=== PATIENT | male | born 1935 | race Caucasian/White ===

== ENCOUNTER 2017-12-11 14:07 | Outpatient (RCR) | payer MEDICARE, OTHER, SELFPAY | END 2018-03-18 14:17 | LOC: SP 14:07 | PROVIDERS: Family Provider Family Medicine; PCP Family Medicine; Visit Provider Family Medicine | DX: R13.10 Dysphagia, unspecified (principal) | CPT/HCPCS: 92526; 92610 ==

== ENCOUNTER 2018-05-03 09:38 | Emergency (ER) | payer MEDICARE, OTHER, SELFPAY ==
[2018-05-03 09:50] VITALS: BP 127/108; PULSE 69; RESP 16; TEMP 36.5; O2SAT 100; BMI 32.5
--- NOTE | 2018-05-03 09:54 | PC.NURSE ---
uses cbd drops occasionally.
--- NOTE | 2018-05-03 10:35 | ED_ITS ---
HPI - Back Pain/Injury General Chief Complaint: Back Pain/Injury Stated Complaint: BACK AND HIP PAIN Time Seen by Provider: 05/03/18 10:08 Source: patient Mode of arrival: ambulatory Limitations: no limitations History of Present Illness HPI Narrative: The patient is a 82-year-old male who presents with back pain. He has a history of a lumbar fusion. Many years ago. He has been having some spasms in increased pain over the last few nights. No urinary incontinence no fever. He has got numbness and tingling down the lateral side of his legs no difficulty walking. He has taken ibuprofen any taken Tylenol along with hydrocodone. He says nothing helped. He is also on Eliquis. Related Data Home Medications Medication Instructions Recorded Confirmed fluticasone [Flovent HFA] 1 spray INH BID #0 09/09/16 05/03/18 metoprolol succinate [Toprol XL] 50 mg PO BID #0 09/09/16 05/03/18 testosterone cypionate [Testone 200 mg IM #0 09/09/16 CIK] apixaban [Eliquis] 2.5 mg PO BID 05/03/18 05/03/18 apixaban [Eliquis] 2.5 mg PO BID 05/03/18 05/03/18 hydrocodone-acetaminophen 5 - 325 mg PO PRN PRN 05/03/18 05/03/18 ibuprofen 600 mg PO PRN PRN 05/03/18 05/03/18 metoprolol succinate 50 mg PO BID 05/03/18 05/03/18 simvastatin 40 mg PO DAILY 05/03/18 05/03/18 Previous Rx's Medication Instructions Recorded furosemide 40 mg PO Q DAY #30 09/09/16 Allergies Allergy/AdvReac Type Severity Reaction Status Date / Time Sulfa (Sulfonamide Allergy Severe THROAT Verified 05/03/18 09:54 Antibiotics) SWELLING Review of Systems Review of Systems GENERAL: Denies chills, fatigue, malaise, fever, sweats, travel HEENT: Denies sinus pain, ear pain, sore throat, difficulty swallowing, neck pain RESPIRATORY: Denies dyspnea, cough, wheezing, hemoptysis, sputum. CARDIOVASCULAR: Denies chest pain, palpitations, orthopnea, edema GASTROINTESTINAL: Denies nausea, vomiting, abdominal pain, diarrhea, constipation, melena. : Denies dysuria, frequency, incontinence, hematuria, urinary retention, flank pain. MUSCULOSKELETAL: See HPI SKIN: No rash, no erythema, no pruritus NEUROLOGIC: Denies weakness, dizziness, headache, numbness, change in speech, confusion PSYCHIATRIC: No concerning psychosocial issues. 12 point review of systems is negative except for those stated above and HPI PFSH Medical History Atrial fibrillation (Acute) Fusion of spine, lumbar region (Acute) Social History Smoking Status: Former smoker Exam Initial Vital Signs Initial Vital Signs: Vital Signs Temperature 97.7 F 05/03/18 09:50 Pulse Rate 69 05/03/18 09:50 Respiratory Rate 16 05/03/18 09:50 Blood Pressure 127/108 H 05/03/18 09:50 Pulse Oximetry 100 05/03/18 09:50 GENERAL: Alert elderly male in no acute distress speaking full sentences HEENT: Head atraumatic,EOMI, pupils reactive, face symmetric CARDIOVASCULAR: Regular rate and rhythm without murmurs, rubs or gallops. RESPIRATORY: Breath sounds equal bilaterally, no wheezes rales or rhonchi. ABDOMEN: Soft, nontender. Normoactive bowel sounds all 4 quadrants. No guarding or rebound. BACK: No vertebral tenderness no step-offs. There is a lumbar fusion scar noted. Sensation in lower extremities in medial thighs intact. Moving toes. EXTREMITIES: Normal range of motion, no clubbing or edema. Neurovascularly intact NEUROLOGICAL: Alert and oriented x4.Normal gait and speech. Cranial nerves II through XII grossly intact. SKIN: Warm, dry, no laceration, no petechiae, no rashes or lesions. Course Orders Ordered: ED Orders 05/03/18 10:42 XR lumbar spine 2-3V Stat Vital Signs - 8 hr 05/03/18 09:50 05/03/18 11:28 05/03/18 11:37 Temperature 97.7 F Pulse Rate 69 60 82 Respiratory Rate 16 14 20 Blood Pressure 127/108 H 123/82 Blood Pressure [Right Arm] 123/82 Pulse Oximetry 100 99 98 MDM - Back Pain/Injury Imaging Data XRAY-L spine: Radiologist's impression: PROCEDURE: XR LUMBAR SPINE 2-3V INDICATIONS: pain, hx of surgery TECHNIQUE: 3 views of the lumbar spine were acquired. COMPARISON: [facility], XR LUMBAR SPINE 2 OR 3 VIEWS, 08/19/2017, 13:34. FINDINGS: Bones: 5 [id number] vertebrae are present. Patient is status post transpedicular fusion at L3-L5 levels with intervertebral spacer placement at L3-4 and L4-5 levels. Grade 1 anterolisthesis of L4 on L5 is again seen, unchanged from prior study. No acute compression fracture or traumatic spondylolisthesis. No gross hardware loosening or failure. Degenerative endplate changes are again noted throughout rest of lumbar spine, unchanged or slightly worsened compared to previous study. No suspicious bony lesions. Soft tissues: Overlying bowel gas pattern is normal. No suspicious soft tissue calcifications. IMPRESSION: Stable lumbar spine alignment. No gross hardware complication. No acute compression fracture or traumatic spondylolisthesis. Degenerative disc disease lumbar spine. Dictated by: Odilon Gonzales M.D. on 05/03/2018 at 11:02 [facility] Narrative Medical decision making narrative: Patient has an appointment with Orthopedics this week. He says his CBD oil actually works best for him. I actually encouraged him to continue this rather than put him on sedating medications such as opiates her muscle relaxer. He is at risk for falling and is on Eliquis. Discharge Plan Departure Patient Disposition: Home Clinical Impression: Acute exacerbation of chronic low back pain Discharge Date/Time: 05/03/18 11:38 Interventions: ED Discharge Assessment Last Done: 05/03/18 11:37 Instructions: DI for Back Pain With Sciatica Activity Restrictions/Additional Instructions: *You have been diagnosed with acute on chronic low back pain *What to do: Increase activity as tolerated, try heating pad *Continue to take medications as directed *Follow up with your primary care provider in 2-3 days, follow up with Orthopedics as previously scheduled *Return to ER if you should have loss of urine, weakness, inability to stand or any new, worsening or concerning symptoms Prescriptions: No Action metoprolol succinate [Toprol XL] 50 MG tablet extended release 24 hr 50 mg PO BID Qty: 0 RF: 0 fluticasone [Flovent HFA] 12 GM HFA aerosol inhaler 1 spray INH BID Qty: 0 RF: 0 testosterone cypionate [Testone CIK] 200 MG/1 ML kit 200 mg IM Qty: 0 RF: 0 furosemide 40 MG tablet 40 mg PO Q DAY Qty: 30 RF: 0 apixaban [Eliquis] 2.5 mg tablet 2.5 mg PO BID RF: 0 ibuprofen 600 mg tablet 600 mg PO PRN PRN (Reason: Pain (Scale Score 1-3)) RF: 0 hydrocodone-acetaminophen 5-325 mg tablet 5 - 325 mg PO PRN PRN (Reason: Pain (Scale Score 1-3)) RF: 0 simvastatin 20 mg tablet 40 mg PO DAILY RF: 0 apixaban [Eliquis] 5 MG tablet 2.5 mg PO BID RF: 0 metoprolol succinate 50 MG tablet extended release 24 hr 50 mg PO BID RF: 0
--- NOTE | 2018-05-03 10:42 | DI.RAD.S_ITS ---
PROCEDURE: XR LUMBAR SPINE 2-3V INDICATIONS: pain, hx of surgery TECHNIQUE: 3 views of the lumbar spine were acquired. COMPARISON: [facility], CR, XR LUMBAR SPINE 2 OR 3 VIEWS, 08/19/2017, 13:34. FINDINGS: Bones: 5 [id number] vertebrae are present. Patient is status post transpedicular fusion at L3-L5 levels with intervertebral spacer placement at L3-4 and L4-5 levels. Grade 1 anterolisthesis of L4 on L5 is again seen, unchanged from prior study. No acute compression fracture or traumatic spondylolisthesis. No gross hardware loosening or failure. Degenerative endplate changes are again noted throughout rest of lumbar spine, unchanged or slightly worsened compared to previous study. No suspicious bony lesions. Soft tissues: Overlying bowel gas pattern is normal. No suspicious soft tissue calcifications. IMPRESSION: Stable lumbar spine alignment. No gross hardware complication. No acute compression fracture or traumatic spondylolisthesis. Degenerative disc disease lumbar spine. Dictated by: Odilon Gonzales M.D. on 05/03/2018 at 11:02 Approved by: Odilon Gonzales M.D. on 05/03/2018 at 11:04
[2018-05-03 11:28] VITALS: BP 123/82; PULSE 60; RESP 14; O2SAT 99
[2018-05-03 11:37] VITALS: BP 123/82; PULSE 82; RESP 20; O2SAT 98
== END 2018-05-03 11:38 | disposition home or self-care (01) ==
PROVIDERS: Emergency Provider Emergency Medicine; Family Provider Family Medicine; PCP Family Medicine
DX: M54.9 Dorsalgia, unspecified (principal); G89.29 Other chronic pain
CPT/HCPCS: 72100; 99282; 99283

== ENCOUNTER → 2018-05-11 11:42 | Outpatient (CLI) | payer MEDICARE, OTHER, SELFPAY ==
--- NOTE | 2018-05-11 | DI.CT.S_ITS ---
PROCEDURE: CT LUMBAR SPINE WO CON INDICATIONS: LUMBAR RADICULOPATHY TECHNIQUE: Noncontrast 3 mm thick sections acquired from the T12 level to the sacrum. Sagittal and coronal reformats were constructed. For radiation dose reduction, the following was used: automated exposure control. COMPARISON: [facility] [place], [place], XR LUMBAR SPINE 2 OR 3 VIEWS, 08/19/2017, 13:34. [facility], CR, XR LUMBAR SPINE 2-3V, 05/03/2018, 10:26. FINDINGS: Image quality: Excellent. Bones: There is grade 1 anterolisthesis of L1 on L2 and L4 on L5. No acute vertebral body compression fractures. No suspicious lytic or blastic bony lesions. Schmorl's nodes are seen in inferior endplates of T11 and T12 and superior endplate of L1. No pars defects. T12-L1: Moderate loss of disc height and vacuum phenomenon. There is diffuse posterior disc bulge. Mild bilateral facet arthropathy. The central canal is mildly narrowed. Mild to moderate bilateral foraminal stenosis. L1-L2: Mild loss of disc height and diffuse posterior disc bulge. Moderate bilateral facet arthropathy. The central canal is moderately narrowed. Mild to moderate bilateral foraminal stenosis. L2-L3: Moderate loss of disc height and diffuse posterior disc bulge. Moderate bilateral bilateral facet arthropathy. The central canal is moderately narrowed. Moderate bilateral foraminal stenosis. L3-L4: Surgically fused with discectomy and laminectomy. Moderate bilateral facet arthropathy. No central canal or foraminal stenosis. L4-L5: Surgically fused with discectomy and laminectomy. Moderate bilateral facet arthropathy. No central canal stenosis. Moderate bilateral foraminal stenoses. L5-S1: Minimal posterior disc bulge with preserved disc height. No central canal or foraminal stenosis. Soft tissues: No retroperitoneal masses or hematomas. Visualized aorta is normal in caliber. IMPRESSION: 1. Multilevel degenerative and postsurgical changes as described. 2. Moderate central canal stenosis at L1-L2 and L2-L3, mild central canal stenosis at T12-L1. 3. Multilevel foraminal stenosis as described. Dictated by: Roya Koch M.D. on 05/11/2018 at 12:59 Transcribed by: [place] on 05/11/2018 at 13:32 Approved by: Roya Koch M.D. on 05/11/2018 at 17:50
== END ==
PROVIDERS: PCP Family Medicine; Visit Provider Orthopaedic Surgery
DX: M51.16 Intervertebral disc disorders with radiculopathy, lumbar region (principal); M51.15 Intervertebral disc disorders with radiculopathy, thoracolumbar region; Z98.1 Arthrodesis status; M47.26 Other spondylosis with radiculopathy, lumbar region; M47.25 Other spondylosis with radiculopathy, thoracolumbar region; M48.05 Spinal stenosis, thoracolumbar region; M48.061 Spinal stenosis, lumbar region without neurogenic claudication
CPT/HCPCS: 72131

== ENCOUNTER → 2018-05-15 10:12 | Outpatient (CLI) | payer MEDICARE, OTHER, SELFPAY ==
[2018-05-15 11:11] LABS: BUN Creatinine Ratio 39.4 (6-22); Blood Urea Nitrogen 71 mg/dL (9-20); Calcium 10.2 mg/dL (8.4-10.2); Carbon Dioxide 25 mmol/L (22-32); Chloride 105 mmol/L (98-107); Estimated Glomerular Filt Rate 36.2 mL/min (>60); Glucose 88 mg/dL (80-110); HEMOLYSIS < 15 (0-50); Sodium 142 mmol/L (137-145)
[2018-05-15 11:14] LABS: Potassium 5.5 mmol/L (3.4-5.1)
== END ==
PROVIDERS: PCP Family Medicine; Visit Provider Internal Medicine Cardiovascular Disease
DX: I48.0 Paroxysmal atrial fibrillation (principal); I48.3 Typical atrial flutter
CPT/HCPCS: 36415; 80048

== ENCOUNTER → 2018-09-01 11:20 | Outpatient (CLI) | payer MEDICARE, OTHER, SELFPAY ==
[2018-09-01 12:35] LABS: BUN Creatinine Ratio 16.7 (6-22); Blood Urea Nitrogen 20 mg/dL (9-20); Calcium 9.5 mg/dL (8.4-10.2); Carbon Dioxide 30 mmol/L (22-32); Chloride 101 mmol/L (98-107); Estimated Glomerular Filt Rate 57.8 mL/min (>60); Glucose 80 mg/dL (80-110); HEMOLYSIS < 15 (0-50); Potassium 4.5 mmol/L (3.4-5.1); Sodium 140 mmol/L (137-145)
== END ==
PROVIDERS: PCP Family Medicine; Visit Provider Nurse Practitioner Family
DX: Z51.81 Encounter for therapeutic drug level monitoring (principal); Z79.899 Other long term (current) drug therapy
CPT/HCPCS: 36415; 80048

== ENCOUNTER 2019-09-13 11:30 | Outpatient (RCR) | payer MEDICARE, OTHER, SELFPAY ==
--- NOTE | 2019-08-23 13:19 | ST.OPIE ---
Visit Care Team Role Provider Type Sendy Guerra PA-C Primary Care Provider Non-Staff Specialty: Nursing Address: [address] [place] [address], [id number] Email: Marco Maynard MD Attending Provider Physician Referring Provider Specialty: Ear, Nose, Throat Address: [address] [place] [address], [id number] Email: [email or web address] Speech-Language Pathology Initial Evaluation MODEL BUILDER Clinical Swallow Evaluation Start: 08/23/19 10:30 Freq: Status: Active Protocol: Document 08/23/19 12:46 LNK (Rec: 08/23/19 13:18 LNK [email or web address]) Clinical Swallow Evaluation Session Time Visit Start Time 10:30 Visit Stop Time 11:25 Total Visit Minutes 55 Visit Information Visit Number 1 Plan of Care Dates 08/23/19-11/21/[address] Marco Maynard, ENT Reason for Referral dysphagia Setting Assessment Location Outpatient Care Visit Type Note Type Initial Evaluation Next Note Type Next Note Type Treatment Note Patient Information Identification Type Name,Picture History Delvin Cali was seen for a clinical swallowing evaluation at the referral of Dr. Maynard. According to the records received, the pt has a medical history of GERD, COPD , mild sinusitis and recurrent bronchitis. Pt describes 3-4 instance of bronchitis per year. On 09/05/2017, pt had a MBSS that indicated frequent laryngotracheal penetration, pooling within the pharynx, especially the valeculla and residue along the anterior thyroid lamina. No aspiration was observed. ST was recommended swallow therapy at that time. Pt did not follow up with recommendation. Subjective Observations Pt walked into the treatment room. He remarked that last week he had been discharged from the hospital for pneumonia. Evaluation Oral Impairment WFL Findings Impressions PO trials were not initiated. The 09/05/2017 MBS was reviewed with the pt. Prior to the MBS playback, a computer graphics demonstration of a normal swallow was shown to the pt, pointing out landmarks with functioning of structures. An example of penetration without aspiration was also reviewed. During the review of his MBS, the pt was able to observe the laryngotracheal penetration during his swallow. He was able to view the residual pooling as well. Following the review of his MBS, safe swallow strategies were discussed with written instructions provided. Additionally, linguapharyngeal exercises were introduced and demonstrated to the pt. Written descriptions were provided as well. The pt was able to demonstrate the exercises. All questions were answered to his satisfaction. Aspiration Precautions Recommended Precautions Alternate Liquids/Solids,Small Bites/Sips Treatment Plan Therapy Recommendations Swallow therapy to improve linguapharyngeal function for safe swallowing. Repeat MBS in 2-3 months Dysphagia Goals Pt will be able to describe and demonstrate safe swallow strategies during PO trials in therapy. Pt will be able to describe and demonstrate linguapharyngeal exercises. He will report decrease in cough/choke incidents when swallowing.
--- NOTE | 2019-08-30 12:33 | ST.IPDYTX ---
Visit Care Team Role Provider Type Sendy Guerra PA-C Primary Care Provider Non-Staff Specialty: Nursing Address: [address] [place] [address], [id number] Email: Marco Maynard MD Attending Provider Physician Referring Provider Specialty: Ear, Nose, Throat Address: [address] [place] [address], [address] Email: [email or web address] [email or web address] Dysphagia Treatment YARN EXAMINER Dysphagia Treatment Start: 08/23/19 10:30 Freq: Status: Active Protocol: Document 08/30/19 12:26 LNK (Rec: 08/30/19 12:32 LNK [email or web address]) Dysphagia Treatment Session Time Visit Start Time 11:30 Visit Stop Time 11:10 Total Visit Minutes 40 Visit Information Visit Number 2 Plan of Care Dates 08/23/19-11/21/19 Setting Assessment Location Outpatient Care Visit Type Note Type Initial Evaluation Next Note Type Next Note Type Treatment Note Patient Information Identification Type Name,Picture Treatment Liquids Trialed Thin Pharyngeal Strategies Sitting Upright (90 deg), Effortful Swallow,Small Bites and Sips Additional Dysphagia Treatment Rapid Jaw opening and Shaker Strategies exercises Treatment Activities Pt noted that he has been doing the Shaker and Effortful Swallow exercises daily. Trial with water sips noted audible swallow 3/4 swallows. Reviewed exercises and the targeted areas: base of tongue and infrahyiods for increased strength at closure. Added Rapid Jaw opening exercise to pt's HEP. Assessment Patient Response to Treatment Excellent Rehab Potential Excellent Assessment of Improvement Pt feels he is coughing less. He stated that if he feels a burning sensation in his throat, he just clear my throat and its gone. Diet Recommendations Recommendations Continue Current Diet Aspiration Precautions Recommended Precautions Upright at 90 Degrees Treatment Plan Appropriate for Continued Therapy Yes Therapy Recommendations Swallow therapy to improve linguapharyngeal function for safe swallowing Dysphagia Goals Repeat MBS in 3 months Pt will be able to describe and demonstrate safe swallow strategies during PO trials in therapy. Pt will be able to describe and demonstrate linguapharyngeal exercises. He will report decrease in cough/choke incidents when swallowing.
--- NOTE | 2019-09-13 13:22 | ST.IPDYTX ---
Visit Care Team Role Provider Type Sendy Guerra PA-C Primary Care Provider Non-Staff Specialty: Nursing Address: [address] [place] [address], [address] Email: Marco Maynard MD Attending Provider Physician Referring Provider Specialty: Ear, Nose, Throat Address: [address] [place] [address], [id number] Email: [email or web address] [email or web address] Dysphagia Treatment MEDICAL INVESTIGATOR Dysphagia Treatment Start: 08/23/19 10:30 Freq: Status: Active Protocol: Document 09/13/19 10:20 LNK (Rec: 09/13/19 12:27 LNK [email or web address]) Dysphagia Treatment Session Time Visit Start Time 11:35 Visit Stop Time 11:00 Total Visit Minutes 25 Visit Information Visit Number 3 Plan of Care Dates 08/23/19-11/21/19 Setting Assessment Location Outpatient Care Visit Type Note Type Initial Evaluation Next Note Type Next Note Type Treatment Note Patient Information Identification Type Name,Picture Subjective Observations Pt had just come from the Drs office. He reported a cough and shortness of breath but no fever. His Dr. stated he did not need to be tested for COVID-19 as he did not meet criteria. Treatment Liquids Trialed Thin Administration Type Self-Feeding Oral Strategies Upright at 90 degrees,Double Swallow,Controlled Bite/Sip Size Pharyngeal Strategies Sitting Upright (90 deg), Effortful Swallow,Small Bites and Sips Additional Dysphagia Treatment Rapid Jaw OPening and Shaker Strategies exercises Treatment Activities Pt noted that he has been doing the Shaker and Effortful Swallow exercises daily. Trial with water x3 and cracker, noted good hyolaryngeal elevation. Swallow was not audible x5 swallows. Introduced bolus Hold exercise to the pt with a cracker trial. Pt was able to demonstrate the swallow x2. Reviewed exercises and the targeted areas: base of tongue and infrahyiods for increased strength and increased vistibule closure. Added Bolus Hold x5-10 during a meal to pt's HEP. Assessment Patient Response to Treatment Excellent Rehab Potential Excellent Assessment of Improvement . Diet Recommendations Recommendations Continue Current Diet Liquids Order Thin Diet Order Regular Medication Recommendations As Tolerated Additional Dietary Needs Controlled Sips Aspiration Precautions Recommended Precautions Upright at 90 Degrees Treatment Plan Appropriate for Continued Therapy Yes Therapy Recommendations Swallow therapy to improve linguapharyngeal function for safe swallowing Dysphagia Goals Repeat MBS in 3 months Pt will be able to describe and demonstrate safe swallow strategies during PO trials in therapy. Pt will be able to describe and demonstrate linguapharyngeal exercises. He will report decrease in cough/choke incidents when swallowing.
--- NOTE | 2020-01-25 10:13 | ST.IPDYTX ---
Visit Care Team Role Provider Type Sendy Guerra PA-C Primary Care Provider Non-Staff Specialty: Nursing Address: [address] [place] [address], [id number] Email: Marco Maynard MD Attending Provider Physician Referring Provider Specialty: Ear, Nose, Throat Address: [address] [place] [address], [address] Email: [email or web address] COMMERCIAL FISHING VESSEL OPERATOR Dysphagia Treatment COMMERCIAL FISHING VESSEL OPERATOR Dysphagia Treatment Start: 08/23/19 10:30 Freq: Status: Active Protocol: Document 01/25/20 10:08 LNK (Rec: 01/25/20 10:11 LNK [email or web address]) Dysphagia Treatment Visit Type Note Type Discharge Summary Patient Information Subjective Observations Pt had just come from the Drs office. He reported a cough and shortness of breath but no fever. His Dr. stated he did not need to be tested for COVID-19 as he did not meet criteria. Assessment Patient Response to Treatment Excellent Assessment of Improvement Due to the COVID19 crisis, this patient has not been seen since 09/13/19. When contacted about returning for therapy, the pt declined. Will discharge at this time Treatment Plan Appropriate for Continued Therapy No Therapy Recommendations Discharge
== END 2020-01-26 10:53 ==
LOC: SP 11:30
PROVIDERS: PCP Physician Assistant; Referring Provider Otolaryngology; Visit Provider Otolaryngology
DX: R13.19 Other dysphagia (principal)
CPT/HCPCS: 92526; 92610

== ENCOUNTER → 2020-06-13 11:32 | Outpatient (CLI) | payer MEDICARE, OTHER, SELFPAY ==
[2020-06-13 12:27] LABS: BUN Creatinine Ratio 25.4 (6-22); Blood Urea Nitrogen 35 mg/dL (9-20); Calcium 9.1 mg/dL (8.4-10.2); Carbon Dioxide 29 mmol/L (22-32); Chloride 100 mmol/L (98-107); Glucose 104 mg/dL (80-110); HEMOLYSIS < 15 (0-50); Sodium 137 mmol/L (137-145)
== END ==
PROVIDERS: PCP Physician Assistant; Referring Provider Nurse Practitioner Family; Visit Provider Nurse Practitioner Family
DX: I48.91 Unspecified atrial fibrillation (principal)
CPT/HCPCS: 36415; 80048

== ENCOUNTER → 2020-10-12 13:10 | Outpatient (CLI) | payer MEDICARE, OTHER, SELFPAY ==
[2020-10-12 14:49] LABS: BUN Creatinine Ratio 25.8 (6-22); Blood Urea Nitrogen 34 mg/dL (9-20); Carbon Dioxide 29 mmol/L (22-32); Chloride 99 mmol/L (98-107); Estimated Glomerular Filt Rate 51.5 mL/min (>60); Glucose 97 mg/dL (80-110); HEMOLYSIS < 15 (0-50); Potassium 4.1 mmol/L (3.4-5.1); Sodium 139 mmol/L (137-145)
== END ==
PROVIDERS: PCP Physician Assistant Medical; Referring Provider Nurse Practitioner Family; Visit Provider Nurse Practitioner Family
DX: I48.91 Unspecified atrial fibrillation (principal)
CPT/HCPCS: 36415; 80048

== ENCOUNTER → 2021-02-20 13:45 | Outpatient (CLI) | payer MEDICARE, OTHER, SELFPAY ==
[2021-02-20 18:35] LABS: Blood Urea Nitrogen 38 mg/dL (9-20); Calcium 9.3 mg/dL (8.4-10.2); Carbon Dioxide 29 mmol/L (22-32); Chloride 102 mmol/L (98-107); Estimated Glomerular Filt Rate 47.8 mL/min (>60); Glucose 88 mg/dL (80-110); HEMOLYSIS < 15 (0-50); Potassium 4.3 mmol/L (3.4-5.1); Sodium 139 mmol/L (137-145)
== END ==
PROVIDERS: PCP Physician Assistant Medical; Referring Provider Nurse Practitioner Family; Visit Provider Nurse Practitioner Family
DX: Z51.81 Encounter for therapeutic drug level monitoring (principal); Z79.899 Other long term (current) drug therapy
CPT/HCPCS: 36415; 80048

== ENCOUNTER → 2021-05-31 11:11 | Outpatient (CLI) | payer MEDICARE, OTHER, SELFPAY ==
[2021-05-31 13:39] LABS: BUN Creatinine Ratio 24.6 (6-22); Blood Urea Nitrogen 33 mg/dL (9-20); Calcium 9.6 mg/dL (8.4-10.2); Carbon Dioxide 31 mmol/L (22-32); Chloride 100 mmol/L (98-107); Estimated Glomerular Filt Rate 50.5 mL/min (>60); Glucose 88 mg/dL (80-110); HEMOLYSIS < 15 (0-50); Potassium 4.5 mmol/L (3.4-5.1); Sodium 139 mmol/L (137-145)
== END ==
PROVIDERS: PCP Physician Assistant Medical; Referring Provider Nurse Practitioner Family; Visit Provider Nurse Practitioner Family
DX: Z51.81 Encounter for therapeutic drug level monitoring (principal); Z79.899 Other long term (current) drug therapy
CPT/HCPCS: 36415; 80048

== ENCOUNTER → 2021-10-09 10:50 | Outpatient (CLI) | payer MEDICARE, OTHER, SELFPAY ==
[2021-10-09 12:11] LABS: Blood Urea Nitrogen 31 mg/dL (9-20); Calcium 9.1 mg/dL (8.4-10.2); Carbon Dioxide 32 mmol/L (22-32); Chloride 100 mmol/L (98-107); Estimated Glomerular Filt Rate 48.5 mL/min (>60); Glucose 91 mg/dL (80-110); HEMOLYSIS < 15 (0-50); Potassium 4.2 mmol/L (3.4-5.1); Sodium 138 mmol/L (137-145)
== END ==
PROVIDERS: PCP Physician Assistant Medical; Referring Provider Nurse Practitioner Family; Visit Provider Nurse Practitioner Family
DX: Z51.81 Encounter for therapeutic drug level monitoring (principal); Z79.899 Other long term (current) drug therapy
CPT/HCPCS: 36415; 80048

== ENCOUNTER → 2021-10-30 12:38 | Outpatient (CLI) | payer MEDICARE, OTHER, SELFPAY ==
--- NOTE | 2021-10-30 12:41 | DI.CT.S_ITS ---
PROCEDURE: CT SINUS SCREEN WO CON INDICATIONS: Cough; Chronic frontal sinusitis TECHNIQUE: Noncontrast 3.0 mm axial images acquired from the frontal sinuses to the mid-sella, with coronal and sagittal reformats. For radiation dose reduction, the following was used: automated exposure control, adjustment of mA and/or kV according to patient size. COMPARISON: None. FINDINGS: Image quality: Excellent. Maxillary Sinuses: No bony remodeling or destruction. Minimal mucosal thickening is seen involving the inferior maxillary sinuses. Ethmoid Air Cells: No bony remodeling or destruction. Mild mucosal thickening is seen within the right posterior ethmoid air cells. Sphenoid Sinuses: No bony remodeling or destruction. Sinuses are clear. Frontal Sinuses: No bony remodeling or destruction. Mild mucosal thickening is seen within the inferomedial frontal sinuses. Ostiomeatal Complexes: Ostiomeatal complexes are patent. No Sarath cells. Miscellaneous: Visualized intra-orbital contents are normal. There is a small left-sided funmi bullosa. There is mild rightward nasal septal deviation. IMPRESSION: Multiple sites of mild paranasal sinus disease can be seen. Dictated by: Chase Yeh M.D. on 10/30/2021 at 12:06 Approved by: Chase Yeh M.D. on 10/30/2021 at 12:07
--- NOTE | 2021-10-30 12:41 | DI.CT.S_ITS ---
PROCEDURE: CT CHEST HIGH RESOLUTION INDICATIONS: Cough; Chronic frontal sinusitis TECHNIQUE: Noncontrast 1.0 and 5.0 mm thick contiguous axial sections from the pulmonary apex to the posterior costophrenic angles, with 7 mm thick coronal and sagittal MIP reformats. 1 mm thick dynamic expiratory images acquired through the upper, mid, and lower lungs. 1.0 mm thick axial sections acquired from the aleshia to the posterior costophrenic angles in the prone end-inspiration position. For radiation dose reduction, the following was used: automated exposure control, adjustment of mA and/or kV according to patient size. COMPARISON: None. FINDINGS: Image quality: Excellent. Lungs and pleura: Dynamic images demonstrate no air trapping. Peripheral airways demonstrate mild bilateral lower lobe bronchiectasis. Bibasilar subpleural reticulation and minor subpleural honeycombing in the posterolateral lung bases is present. There is moderate pleural thickening adjacent to the fissures in both mid to lower lung zones. Upper lungs demonstrate trace subpleural reticulation but are otherwise normal. There are no suspicious nodules, masses, consolidations, or ground-glass opacities. There are no pleural effusions or pleural calcification. Mediastinum: Heart size is normal. Dual lead pacemaker present. Mild coronary artery calcification versus stent in the circumflex. No pericardial effusion. Thoracic aorta and central pulmonary arteries are normal in size. The esophagus contains ingested material in the midportion. Normal wall thickness. No hiatal hernia. Bones: Incidental note made of partially imaged severe degenerative disc change in the low cervical spine and grade 1 anterolisthesis C7 on T1. Multilevel lower thoracic spine spurring. No suspicious bone lesions. Moderate degenerative change at the sternoclavicular joints, right worse than left. Abdomen: Visualized upper abdominal solid organs and bowel loops appear normal. IMPRESSION: 1. 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 2. No ground-glass opacities or pleural effusions to suggest acute infection. 3. Ingested material present within the esophagus. Correlate clinically and consider aspiration risk. Dictated by: Aiyana bAdalla M.D. on 10/30/2021 at 15:00 Approved by: Aiyana Abdalla M.D. on 10/30/2021 at 15:08
== END ==
PROVIDERS: PCP Physician Assistant Medical; Referring Provider Internal Medicine Pulmonary Disease; Visit Provider Internal Medicine Pulmonary Disease
DX: J32.8 Other chronic sinusitis (principal); J34.2 Deviated nasal septum; R05.9 Cough, unspecified
CPT/HCPCS: 70486; 71250

== ENCOUNTER → 2022-01-15 09:19 | Outpatient (CLI) | payer MEDICARE, OTHER, SELFPAY ==
[2022-01-15 10:56] LABS: BUN Creatinine Ratio 28.1 (6-22); Blood Urea Nitrogen 34 mg/dL (9-20); Carbon Dioxide 26 mmol/L (22-32); Chloride 101 mmol/L (98-107); Estimated Glomerular Filt Rate 58 mL/min (>60); Glucose 92 mg/dL (80-110); HEMOLYSIS < 15 (0-50); Potassium 3.7 mmol/L (3.4-5.1); Sodium 137 mmol/L (137-145)
== END ==
PROVIDERS: PCP Physician Assistant Medical; Referring Provider Nurse Practitioner Family; Visit Provider Nurse Practitioner Family
DX: Z51.81 Encounter for therapeutic drug level monitoring (principal); Z79.899 Other long term (current) drug therapy
CPT/HCPCS: 36415; 80048

== ENCOUNTER → 2022-04-30 13:11 | Outpatient (CLI) | payer MEDICARE, OTHER, SELFPAY ==
[2022-04-30 13:56] LABS: Hemoglobin A1C% w Est Avg Glu 5.9 % (4.0-6.0)
[2022-04-30 14:46] LABS: BUN Creatinine Ratio 21.4 (6-22); Blood Urea Nitrogen 30 mg/dL (9-20); Carbon Dioxide 28 mmol/L (22-32); Chloride 98 mmol/L (98-107); Cholesterol 150 mg/dL (140-199); Estimated Glomerular Filt Rate 49 mL/min (>60); Glucose 102 mg/dL (80-110); HDL Cholesterol 43 mg/dL (40-60); HEMOLYSIS < 15 (0-50); LDL Cholesterol Calculated 76 mg/dL (<100); Potassium 3.9 mmol/L (3.4-5.1); Sodium 138 mmol/L (137-145); Triglycerides 156 mg/dL (35-150)
== END ==
PROVIDERS: PCP Physician Assistant Medical; Referring Provider Nurse Practitioner Family; Visit Provider Nurse Practitioner Family
DX: R73.9 Hyperglycemia, unspecified (principal); E78.5 Hyperlipidemia, unspecified; I48.0 Paroxysmal atrial fibrillation; Z51.81 Encounter for therapeutic drug level monitoring; Z79.899 Other long term (current) drug therapy
CPT/HCPCS: 36415; 80048; 80061; 83036

== ENCOUNTER → 2022-07-22 11:33 | Outpatient (CLI) | payer MEDICARE, OTHER, SELFPAY ==
[2022-07-22 12:36] LABS: BUN Creatinine Ratio 23.2 (6-22); Blood Urea Nitrogen 35 mg/dL (9-20); Calcium 9.1 mg/dL (8.4-10.2); Carbon Dioxide 28 mmol/L (22-32); Chloride 98 mmol/L (98-107); Estimated Glomerular Filt Rate 44 mL/min (>60); Glucose 97 mg/dL (80-110); HEMOLYSIS < 15 (0-50); Potassium 4.4 mmol/L (3.4-5.1); Sodium 136 mmol/L (137-145)
== END ==
PROVIDERS: PCP Physician Assistant Medical; Referring Provider Nurse Practitioner; Visit Provider Nurse Practitioner
DX: I48.0 Paroxysmal atrial fibrillation (principal); Z51.81 Encounter for therapeutic drug level monitoring; Z79.899 Other long term (current) drug therapy; I48.92 Unspecified atrial flutter
CPT/HCPCS: 36415; 80048

== ENCOUNTER 2022-09-23 11:23 | Emergency (ER) | payer MEDICARE, OTHER, SELFPAY ==
[2022-09-23 11:36] VITALS: BP 125/69; PULSE 93; RESP 18; TEMP 36.4; O2SAT 96; BMI 34.8
--- NOTE | 2022-09-23 12:41 | ED_ITS ---
HPI - Back Pain/Injury <Rob Rios PA-C - Last Filed: 09/23/22 18:08> General Chief Complaint: Back Pain/Injury Stated Complaint: back pain T-14 Time Seen by Provider: 09/23/22 12:02 Source: patient and family History of Present Illness HPI Narrative: This is an 87-year-old male presents to the emergency department with a history of lumbar fusion due to acute on chronic lumbar pain. Patient states that the lumbar pain is midline and states that it ?just flared up?. Similar events happened to him in the past for which she is seen PT as well as come here to the emergency department for. Denies any urinary or bowel incontinence, saddle paresthesia, focal weakness, or any other concerning signs or symptoms. Denies fevers. Patient states that he has seen orthopedist about this already and was recommended steroid injections but reports some hesitance. Denies any acute injury but just states that it ?flared up?. Related Data Home Medications Medication Instructions Recorded Confirmed fluticasone propionate 110 1 spray INH BID ##0 09/09/16 05/03/18 mcg/actuation HFA aerosol inhaler (Flovent HFA) metoprolol succinate 50 mg 50 mg PO BID ##0 09/09/16 05/03/18 tablet,extended release 24 hr (Toprol XL) testosterone cypionate 200 mg/mL 200 mg IM ##0 09/09/16 intramuscular kit (Testone CIK) apixaban 2.5 mg tablet 2.5 mg PO BID 05/03/18 05/03/18 apixaban 5 mg tablet (Eliquis) 2.5 mg PO BID 05/03/18 05/03/18 hydrocodone 5 mg-acetaminophen 325 5 - 325 mg PO PRN PRN Pain (Scale 05/03/18 05/03/18 mg tablet Score 1-3) ibuprofen 600 mg tablet 600 mg PO PRN PRN Pain (Scale 05/03/18 05/03/18 Score 1-3) metoprolol succinate 50 mg 50 mg PO BID 05/03/18 05/03/18 tablet,extended release 24 hr simvastatin 20 mg tablet 40 mg PO DAILY 05/03/18 05/03/18 Previous Rx's Medication Instructions Recorded furosemide 40 mg tablet 40 mg PO Q DAY ##30 09/09/16 Allergies Allergy/AdvReac Type Severity Reaction Status Date / Time Sulfa (Sulfonamide Allergy Severe THROAT Verified 09/23/22 11:43 Antibiotics) SWELLING Review of Systems <Rob Rios PA-C - Last Filed: 09/23/22 18:08> Review of Systems Narrative: GENERAL: Denies chills, fatigue, malaise, fever, sweats. HEENT: Denies sinus pain, ear pain, sore throat, difficulty swallowing, dizziness. RESPIRATORY: Denies dyspnea, cough, wheezing, hemoptysis, sputum. CARDIOVASCULAR: Denies chest pain, palpitations, orthopnea, edema, GASTROINTESTINAL: Denies nausea, vomiting, abdominal pain, diarrhea, constipation, melena. : Denies dysuria, frequency, incontinence, hematuria, urinary retention. MUSCULOSKELETAL: denies weakness, joint pain, or bony pain SKIN: Denies rash, skin lesions, or other NEUROLOGIC: Denies weakness, headache, numbness, change in speech, confusion, s eizures, incoordination. PSYCHIATRIC: No concerning psychosocial issues. Back: Reports back pain 12 point review of systems is negative except for those stated above Patient History <Rob Rios PA-C - Last Filed: 09/23/22 18:08> Medical History (Updated 09/23/22 @ 12:47 by Rob Rios PA-C) Atrial fibrillation Fusion of spine, lumbar region Social History Smoking Status: Former smoker Smoking Status: Former smoker alcohol intake frequency: 0-2 drinks per day Substance Use Type: does not use Exam <Rob Rios PA-C - Last Filed: 09/23/22 18:08> Narrative Exam Narrative: GENERAL: Well-developed patient, in mild distress. HEAD: Atraumatic. Normocephalic. EYES: Pupils equal round and reactive. Extraocular motions intact. No scleral icterus. No injection or drainage. ENT: Nose without bleeding, purulent drainage. Throat without erythema, to nsillar hypertrophy or exudate. Airway patent. NECK: Trachea midline. Non tender CARDIOVASCULAR: Regular rate and rhythm without murmurs, gallops, or rubs. RESPIRATORY: Clear to auscultation. Breath sounds equal bilaterally. No wheezes, rales, or rhonchi. GASTROINTESTINAL: Abdomen soft, non-tender, nondistended. EXTREMITIES: No edema or joint tenderness. BACK: Mild midline and paralumbar muscle spinal tenderness to palpation NEURO: AOx3. SKIN: No rash or erythema of visible areas Initial Vital Signs Initial Vital Signs: Vital Signs Temperature 97.6 F 09/23/22 11:36 Pulse Rate 93 H 09/23/22 11:36 Respiratory Rate 18 09/23/22 11:36 Blood Pressure 125/69 09/23/22 11:36 Pulse Oximetry 96 09/23/22 11:36 Oxygen Delivery Method Room Air 09/23/22 11:36 <Deisy Hodges DO - Last Filed: 09/23/22 19:01> Initial Vital Signs Initial Vital Signs: Vital Signs Temperature 97.6 F 09/23/22 11:36 Pulse Rate 93 H 09/23/22 11:36 Respiratory Rate 18 09/23/22 11:36 Blood Pressure 125/69 09/23/22 11:36 Pulse Oximetry 96 09/23/22 11:36 Oxygen Delivery Method Room Air 09/23/22 11:36 Course <Rob Rios PA-C - Last Filed: 09/23/22 18:08> Vital Signs Vital signs: Vital Signs - 8 hr 09/23/22 11:36 Temperature 97.6 F Pulse Rate 93 H Respiratory Rate 18 Blood Pressure 125/69 Pulse Oximetry 96 Oxygen Delivery Method Room Air <DO Zelda Verma Last Filed: 09/23/22 19:01> Vital Signs Vital signs: Vital Signs - 8 hr 09/23/22 11:36 Temperature 97.6 F Pulse Rate 93 H Respiratory Rate 18 Blood Pressure 125/69 Pulse Oximetry 96 Oxygen Delivery Method Room Air MDM - Back Pain/Injury <RONNY العراقي Last Filed: 09/23/22 18:08> MDM Narrative Medical decision making narrative: MDM * differential diagnosis includes but not limited to lumbar strain, vertebral fracture, spinal cord compromise, spinal abscess * Prior records reviewed: Patient was seen for similar complaint in 2018. X- rays were taken which were unremarkable. Recommended [id number] symptomatic management * My lab interpretation: None obtained * My imgaing interpretation: None obtained * Clinical Decision Rules/Scores evaluated: None * Independent discussions with: None ED Course: This is a 87-year-old male with a history of lumbar fusion and chronic lower back pain presenting to the emergency department due to a ?flare- up?. Denied any concerning symptoms that would be concerning for any kind infectious process or spinal cord compromise. Due to his age hesitant to prescribe any kind of muscle relaxant or give Toradol which I explained to the patient who is agreeable with this. Recommended follow up with his primary care provider for possible referral to a chronic pain provider for possible steroid injections or radiofrequency ablation. Shared Decision Making: Discussed plan with patient who is comfortable with the plan Social Considerations: None Disposition: Discharged to home Discharge Plan Departure Patient Disposition: Home Clinical Impression: Acute exacerbation of chronic low back pain Instructions: DI for Low Back Pain Activity Restrictions/Additional Instructions: Thank you for coming to the [facility] Emergency Department today. As discussed I have low concern for any kind of spinal cord injury, spinal abscesses, or vertebral fractures. As we discussed I am hesitant to prescribe any kind of muscle relaxant give Toradol as the side effects may be detrimental to your Health. Please follow-up with your primary care provider for possible referral to an orthopedist or chronic pain specialist. The procedures such as steroid injections or radiofrequency ablation which I described to you that may help with your chronic pain. I hope you feel better soon. Prescriptions: No Action metoprolol succinate [Toprol XL] 50 MG tablet extended release 24 hr 50 mg PO BID Qty: 0 fluticasone propionate [Flovent HFA] 12 GM HFA aerosol inhaler 1 spray INH BID Qty: 0 testosterone cypionate [Testone CIK] 200 MG/1 ML kit 200 mg IM Qty: 0 furosemide 40 MG tablet 40 mg PO Q DAY Qty: 30 0RF apixaban [Eliquis] 2.5 mg tablet 2.5 mg PO BID ibuprofen 600 mg tablet 600 mg PO PRN PRN (Reason: Pain (Scale Score 1-3)) Patient Comments: take 1 tablet by mouth every 6 hours hydrocodone-acetaminophen 5-325 mg tablet 5 - 325 mg PO PRN PRN (Reason: Pain (Scale Score 1-3)) simvastatin 20 mg tablet 40 mg PO DAILY apixaban [Eliquis] 5 MG tablet 2.5 mg PO BID metoprolol succinate 50 MG tablet extended release 24 hr 50 mg PO BID Referrals: Sendy Clements PA-C [Primary Care Provider] - Stand Alone Forms: Patient Portal/API <Deisy Hodges DO - Last Filed: 09/23/22 19:01> Cosign ED Attending Cosignature Attestation: I was immediately available in the department for consultation.
--- NOTE | 2022-09-23 13:09 | PC.NURSE ---
Pt dependent of walker d/t pain. No loss of bowel or bladder
== END 2022-09-23 13:00 | disposition home or self-care (01) ==
PROVIDERS: Emergency Provider Physician Assistant Medical; PCP Physician Assistant Medical
DX: M54.50 Low back pain, unspecified (principal); G89.29 Other chronic pain
CPT/HCPCS: 99281

== ENCOUNTER → 2022-12-04 10:40 | Outpatient (CLI) | payer MEDICARE, OTHER, SELFPAY ==
--- NOTE | 2022-12-04 10:46 | DI.RAD.S_ITS ---
PROCEDURE: XR CHEST 2V INDICATIONS: SHORTNESS OF BREATH TECHNIQUE: 2 views of the chest were acquired. COMPARISON: [facility], , CHEST 1 VIEW, 09/09/2016, 12:46. FINDINGS: Surgical changes and devices: Left-sided dual-chamber pacemaker Lungs and pleura: Lungs are clear. No pleural effusions or pneumothorax. Mediastinum: Heart size is enlarged. Mild vascular congestion. Right basilar atelectasis and or infiltrate present. Atherosclerotic vascular calcification noted in the aortic arch. Bones and chest wall: No suspicious bony abnormalities. Soft tissues appear unremarkable. IMPRESSION: Cardiomegaly and mild vascular congestion Right basilar atelectasis and or infiltrate Approved by: Easton Box M.D. on 12/04/2022 at 12:59
[2022-12-04 12:30] LABS: Blood Urea Nitrogen 23 mg/dL (9-20); Calcium 9.3 mg/dL (8.4-10.2); Carbon Dioxide 37 mmol/L (22-32); Chloride 93 mmol/L (98-107); Estimated Glomerular Filt Rate 54 mL/min (>60); Glucose 117 mg/dL (80-110); HEMOLYSIS 26 (0-50); Potassium 3.7 mmol/L (3.4-5.1); Sodium 136 mmol/L (137-145)
[2022-12-04 12:39] LABS: NT-proBNP (BNP-Adult 18+) 3010 pg/mL (<450)
== END ==
LOC: LAB 10:41 → RAD 10:45
PROVIDERS: PCP Physician Assistant Medical; Referring Provider Internal Medicine Cardiovascular Disease; Visit Provider Internal Medicine Cardiovascular Disease
DX: R06.02 Shortness of breath (principal); I48.19 Other persistent atrial fibrillation; I51.7 Cardiomegaly
CPT/HCPCS: 36415; 71046; 80048; 83880

== ENCOUNTER → 2022-12-09 09:40 | Day surgery (SDC) | payer MEDICARE, OTHER, SELFPAY ==
[2022-12-09 10:16] VITALS: BP 129/82; PULSE 112; RESP 18; TEMP 36.2; O2SAT 95; BMI 34.8
--- NOTE | 2022-12-09 10:34 | SUR.PREOP ---
informed he was diagnosed with pna on Friday afternoon. prescribed a steroid and antibiotic and started on Friday. No fevers, No increased coughing and breathing feels the same. lungs clear. C19 test done[address]. Ho informed. mask provided to patient.
[2022-12-09] MEDS: LACTATED RINGERS 1,000 ML 100 ML IV (10:37)
[2022-12-09 10:49] LABS: COVID19 -Nasal RAPID Negative (Negative)
--- NOTE | 2022-12-09 11:23 | PM.HP.1 ---
History of Present Illness History of Present Illness Date Patient Seen: 12/09/22 Time Patient Seen: 11:23 Chief complaint: EGD Narrative: I reviewed the recent office note from August. No significant changes. He is off his Eliquis x2 days. [facility] Medical History Atrial fibrillation CAD (coronary artery disease) Cataract Chronic kidney disease (CKD) Chronic kidney disease (CKD) COPD (chronic obstructive pulmonary disease) Fusion of spine, lumbar region CLARISSA on CPAP Pacemaker Surgical History H/O knee surgery H/O prostatectomy H/O total hip arthroplasty Hx of tonsillectomy Social History household members: family Smoking Status: Former smoker alcohol intake: current Meds Home Medications and Allergies Home Medications Medication Instructions Recorded Confirmed Type fluticasone propionate 110 1 spray INH BID ##0 09/09/16 12/09/22 History mcg/actuation HFA aerosol inhaler (Flovent HFA) furosemide 40 mg tablet 40 mg PO Q DAY ##30 09/09/16 12/09/22 Rx metoprolol succinate 50 mg 50 mg PO BID ##0 09/09/16 12/09/22 History tablet,extended release 24 hr (Toprol XL) apixaban 2.5 mg tablet 2.5 mg PO BID 05/03/18 12/09/22 History apixaban 5 mg tablet (Eliquis) 2.5 mg PO BID 05/03/18 12/09/22 History hydrocodone 5 mg-acetaminophen 325 5 - 325 mg PO PRN PRN Pain (Scale 05/03/18 12/09/22 History mg tablet Score 1-3) ibuprofen 600 mg tablet 600 mg PO PRN PRN Pain (Scale 05/03/18 12/09/22 History Score 1-3) metoprolol succinate 50 mg 50 mg PO BID 05/03/18 12/09/22 History tablet,extended release 24 hr simvastatin 20 mg tablet 40 mg PO DAILY 05/03/18 12/09/22 History Spiriva with HandiHaler 18 mcg PO DAILY 12/09/22 12/09/22 History albuterol 1 puff PO Q3-6H PRN difficulty 12/09/22 12/09/22 History breathing digoxin 125 mcg PO DAILY 12/09/22 12/09/22 History gabapentin 100 mg PO TID 12/09/22 12/09/22 History Allergies Allergy/AdvReac Type Severity Reaction Status Date / Time Sulfa (Sulfonamide Allergy Severe THROAT Verified 09/23/22 11:43 Antibiotics) SWELLING azithromycin Allergy Rash Verified 12/09/22 10:30 diltiazem [From Cardizem] Allergy Rash Verified 12/09/22 10:30 Review of Systems Review of Systems ROS: Yes All systems reviewed with the patient and are negative except as otherwise documented Exam Vital Signs (past 8 hours): - 12/09/22 10:16 Temperature 97.2 F L Pulse Rate 112 H Respiratory Rate 18 Blood Pressure 129/82 Pulse Oximetry 95 Oxygen Delivery Method Room Air Oxygen Delivery Method Room Air Const General: cooperative HENMT Head: normal to inspection Eyes General: appearance normal, both eyes and all related structures Neck Neck: normal visual inspection Chest Chest: normal inspection of the chest Resp Effort & Inspection: normal respiratory effort Cardio Rate: regular rate GI Inspection: normal to inspection Skin General: no rashes or lesions noted Neuro General: patient alert and patient awake Extrem General: normal to inspection and no pedal edema Psych Appearance: grossly normal Objective Labs Labs: Laboratory Results - last 24 hr 12/09/22 10:13 SARS-CoV-2 (PCR) Negative Assessment & Plan Assessment & Plan narrative: 87-year-old male with intermittent dysphagia. Abnormal imaging. He has reflux. EGD is pursued today.
--- NOTE | 2022-12-09 11:25 | PM.PREOP ---
Pre-operative Note Interval Note History & Physical reviewed/Exam performed by Physician: Yes Changes to H&P: Yes H&P completed within 30 days and has changed as indicated here:: Recently commenced on treatment for a possible pneumonia. ASA Class (for procedural sedation): III
== END | disposition home or self-care (01) ==
LOC: ENDO 09:41
PROVIDERS: PCP Physician Assistant Medical; Referring Provider Internal Medicine Gastroenterology; Visit Provider Internal Medicine Gastroenterology
DX: Z53.09 Procedure and treatment not carried out because of other contraindication (principal); R13.10 Dysphagia, unspecified; Z20.822 Contact with and (suspected) exposure to COVID-19
CPT/HCPCS: 87635

== ENCOUNTER 2023-10-13 17:06 | Emergency (ER) | payer MEDICARE, OTHER, SELFPAY ==
[2023-10-13 17:10] VITALS: BP 149/66; PULSE 70; RESP 16; TEMP 36.3; O2SAT 97; BMI 30.9
--- NOTE | 2023-10-13 18:18 | ED_ITS ---
HPI - Back Pain/Injury <Shweta Travis PA-C - Last Filed: 10/13/23 18:24> General Chief Complaint: Back Pain/Injury Stated Complaint: Lower back pain Time Seen by Provider: 10/13/23 17:30 Source: patient and EMS History of Present Illness HPI Narrative: 88-year-old male with past medical history atrial fibrillation, CHF, hypercholesterolemia, chronic lower back pain presents to the ED with 2 days of acute on chronic exacerbation of the lower back pain. Patient complains of pain in the left lower back. Patient denies any new urinary symptoms. Patient states that due to prostate issues, he has some urinary incontinence at baseline but has had no changes recently. Patient has received 2 cortisone injections earlier this year with good relief. Patient states however that the last shot that he received has worn off and his back pain has started again. No new trauma. No numbness, tingling, weakness. Patient does endorse difficulty walking due to the pain. Related Data Home Medications Medication Instructions Recorded Confirmed fluticasone propionate 110 1 spray INH BID ##0 09/09/16 12/09/22 mcg/actuation HFA aerosol inhaler (Flovent HFA) metoprolol succinate 50 mg 50 mg PO BID ##0 09/09/16 12/09/22 tablet,extended release 24 hr (Toprol XL) apixaban 2.5 mg tablet 2.5 mg PO BID 05/03/18 12/09/22 apixaban 5 mg tablet (Eliquis) 2.5 mg PO BID 05/03/18 12/09/22 hydrocodone 5 mg-acetaminophen 325 5 - 325 mg PO PRN PRN Pain (Scale 05/03/18 12/09/22 mg tablet Score 1-3) ibuprofen 600 mg tablet 600 mg PO PRN PRN Pain (Scale 05/03/18 12/09/22 Score 1-3) metoprolol succinate 50 mg 50 mg PO BID 05/03/18 12/09/22 tablet,extended release 24 hr simvastatin 20 mg tablet 40 mg PO DAILY 05/03/18 12/09/22 Spiriva with HandiHaler 18 mcg PO DAILY 12/09/22 12/09/22 albuterol 1 puff PO Q3-6H PRN difficulty 12/09/22 12/09/22 breathing digoxin 125 mcg PO DAILY 12/09/22 12/09/22 gabapentin 100 mg PO TID 12/09/22 12/09/22 Previous Rx's Medication Instructions Recorded furosemide 40 mg tablet 40 mg PO Q DAY ##30 09/09/16 Allergies Allergy/AdvReac Type Severity Reaction Status Date / Time Sulfa (Sulfonamide Allergy Severe THROAT Verified 10/13/23 17:16 Antibiotics) SWELLING azithromycin Allergy Rash Verified 10/13/23 17:16 diltiazem [From Cardizem] Allergy Rash Verified 10/13/23 17:16 Review of Systems <Shweta Travis PA-C - Last Filed: 10/13/23 18:24> Constitutional Constitutional: Denies chills, Denies fatigue, Denies fever(s), Denies frequent falls, Denies lethargy and Denies weakness Eyes Eyes: Denies change in vision, Denies eye discharge, Denies irritation and Denies loss of vision ENT Ears, Nose, Mouth, and Throat: Denies change in voice, Denies dizziness, Denies neck pain, Denies sore throat and Denies throat swelling Cardiovascular Cardiovascular: Denies chest pain, Denies irregular heart rhythm, Denies lightheadedness, Denies palpitations, Denies dyspnea, Denies dyspnea on exertion and Denies orthopnea Respiratory Respiratory: Denies cough, Denies dyspnea, Denies dyspnea on exertion and Denies wheezing Gastrointestinal Gastrointestinal: Denies abdominal pain, Denies change in bowel habits, Denies diarrhea, Denies nausea and Denies vomiting Musculoskeletal Musculoskeletal: Reports back pain, Denies neck pain and Denies numbness Integumentary/Breasts Skin/Breast: Denies pruritus, Denies erythema, Denies rash and Denies wounds Neurologic Neurologic: Denies behavioral changes, Denies confusion, Denies dizziness, Denies frequent falls, Denies loss of vision, Denies numbness and Denies weakness Psychiatric Psychiatric: Denies anxiety, Denies behavioral changes, Denies confusion, Denies depression, Denies homicidal ideation and Denies suicidal ideation Endocrine Endocrine: Denies fatigue, Denies flushing and Denies palpitations Hematologic/Lymphatic Hematologic/Lymphatic: Denies easy bruising Allergic/Immunologic Allergic/Immunologic: Denies urticaria, Denies throat swelling and Denies wheezing Patient History <Shweta Travis PA-C - Last Filed: 10/13/23 18:24> Medical History CAD (coronary artery disease) CLARISSA on CPAP Chronic kidney disease (CKD) Chronic kidney disease (CKD) COPD (chronic obstructive pulmonary disease) Pacemaker Cataract Fusion of spine, lumbar region Atrial fibrillation Surgical History H/O total hip arthroplasty H/O knee surgery H/O prostatectomy Hx of tonsillectomy Social History household members: family Smoking Status: Former smoker alcohol intake: current Smoking Status: Former smoker alcohol intake frequency: 0-2 drinks per day Substance Use Type: does not use Exam <Shweta Travis PA-C - Last Filed: 10/13/23 18:24> Narrative Exam Narrative: Const General:?cooperative, healthy appearing and comfortable HENMI Head:?normal to inspection Ears:?hearing grossly normal bilaterally Nose:?external nose normal Face and sinus:?normal facial exam and sinuses nontender Mouth:?oral mucosae normal Throat:?posterior oropharynx normal Eyes General:?appearance normal, both eyes and all related structures Neck Neck:?normal visual inspection and no lymphadenopathy noted Resp Effort & Inspection:?normal respiratory effort Auscultation:?clear to auscultation bilaterally Cardio Rate:?regular rate Rhythm:?regular rhythm Musculoskeletal No midline tenderness to palpation. No paraspinal tenderness to palpation. There is full range of motion. Patient is able to walk. Neurovascularly intac t. Neuro General:?patient alert, patient awake and patient oriented x3 Initial Vital Signs Initial Vital Signs: Vital Signs Temperature 97.4 F L 10/13/23 17:10 Pulse Rate 70 10/13/23 17:10 Respiratory Rate 16 10/13/23 17:10 Blood Pressure 149/66 H 10/13/23 17:10 Pulse Oximetry 97 10/13/23 17:10 Oxygen Delivery Method Room Air 10/13/23 17:10 <Deisy Hodges DO - Last Filed: 10/18/23 01:27> Initial Vital Signs Initial Vital Signs: Vital Signs Temperature 97.4 F L 10/13/23 17:10 Pulse Rate 70 10/13/23 17:10 Respiratory Rate 16 10/13/23 17:10 Blood Pressure 149/66 H 10/13/23 17:10 Pulse Oximetry 97 10/13/23 17:10 Oxygen Delivery Method Room Air 10/13/23 17:10 Course <Shweta Travis PA-C - Last Filed: 10/13/23 18:24> Vital Signs Vital signs: Vital Signs - 8 hr 10/13/23 17:10 Temperature 97.4 F L Pulse Rate 70 Respiratory Rate 16 Blood Pressure 149/66 H Pulse Oximetry 97 Oxygen Delivery Method Room Air <Deisy Hodges DO - Last Filed: 10/18/23 01:27> Vital Signs Vital signs: Vital Signs - 8 hr 10/13/23 17:10 Temperature 97.4 F L Pulse Rate 70 Respiratory Rate 16 Blood Pressure 149/66 H Pulse Oximetry 97 Oxygen Delivery Method Room Air MDM - Back Pain/Injury <Shweta Travis PA-C - Last Filed: 10/13/23 18:24> MDM Narrative Medical decision making narrative: 88-year-old male with past medical history atrial fibrillation, CHF, hypercholesterolemia, chronic lower back pain presents to the ED with 2 days of acute on chronic exacerbation of the lower back pain. Patient's symptoms are most consistent with a acute on chronic exacerbation of the pre-existing lower back pain. Discussed treatment options with patient, advice trialing a muscle relaxant to start with and only taking tramadol if he does not find sufficient relief. Counseled patient on fall prevention. Counseled patient that the medications might make him drowsy and to exercise caution. Recommend follow-up with PCP and ortho as soon as possible. ED return precautions were discussed with patient. Patient verbalized understanding. Medical records reviewed: Yes Discharge Plan Departure Patient Disposition: Home Clinical Impression: Back pain Qualifiers: Back pain location: low back pain Chronicity: chronic Back pain laterality: left Sciatica presence: unspecified whether sciatica present Qualified Code(s): M54.50 - Low back pain, unspecified Instructions: DI for Back Strain or Sprain Activity Restrictions/Additional Instructions: You were evaluated in the ED today for lower back pain. It appears that your pain is an acute exacerbation of your chronic lower back pain. You are being prescribed tramadol and cyclobenzaprine for pain relief. The cyclobenzaprine is a muscle relaxant, while the tramadol is an opioid medication. Both medications can make you feel drowsy, so please exercise caution to prevent falls. Please follow-up as soon as possible with your PCP and your ortho specialist. Return to the ED if you have worsening symptoms, new urinary difficulties. Prescriptions: No Action metoprolol succinate [Toprol XL] 50 MG tablet extended release 24 hr 50 mg PO BID Qty: 0 fluticasone propionate [Flovent HFA] 12 GM HFA aerosol inhaler 1 spray INH BID Qty: 0 furosemide 40 MG tablet 40 mg PO Q DAY Qty: 30 0RF albuterol 1 puff PO Q3-6H PRN (Reason: difficulty breathing) Spiriva with HandiHaler 18 mcg inhaler 18 mcg PO DAILY digoxin 125 mcg tablet 125 mcg PO DAILY gabapentin 100 mg capsule 100 mg PO TID Eliquis 2.5 mg tablet 2.5 mg PO BID ibuprofen 600 mg tablet 600 mg PO PRN PRN (Reason: Pain (Scale Score 1-3)) Patient Comments: take 1 tablet by mouth every 6 hours hydrocodone-acetaminophen 5-325 mg tablet 5 - 325 mg PO PRN PRN (Reason: Pain (Scale Score 1-3)) simvastatin 20 mg tablet 40 mg PO DAILY Eliquis 5 MG tablet 2.5 mg PO BID metoprolol succinate 50 MG tablet extended release 24 hr 50 mg PO BID Referrals: Sendy Clements PA-C [Primary Care Provider] - Stand Alone Forms: Patient Portal/API ED Sign-out <Deisy Hodges DO - Last Filed: 10/18/23 01:27> Cosign ED Attending Lexie Attestation: I was immediately available in the department for consultation.
[2023-10-13 18:44] VITALS: BP 143/67; PULSE 72; RESP 18; O2SAT 97
== END 2023-10-13 18:45 | disposition home or self-care (01) ==
PROVIDERS: Emergency Provider Student in an Organized Health Care Education/Training Program; PCP Physician Assistant Medical
DX: M54.50 Low back pain, unspecified (principal); Z79.01 Long term (current) use of anticoagulants; Z79.899 Other long term (current) drug therapy
CPT/HCPCS: 99281

== ENCOUNTER 2024-06-05 09:22 | Emergency (ER) | payer MEDICARE, OTHER, SELFPAY ==
[2024-06-05] VITALS (13 sets, daily range): BP systolic 120–149; BP diastolic 63–94; PULSE 69–77; RESP 11–36; TEMP 36.7; O2SAT 95–99
--- NOTE | 2024-06-05 09:27 | ED.GENADULT ---
HPI - General Adult General Chief complaint: GI Bleed Stated complaint: Bloody Stool Time Seen by Provider: 06/05/24 09:25 History of Present Illness HPI narrative: 89-year-old gentleman living independently at home history of paroxysmal atrial fibrillation anticoagulated on apixaban, COPD/asthma with chronic cough, congestive heart failure, coronary artery disease, chronic back pain who presents today with concerns for bright red blood in his stool. He had an episode last night just before bed where he felt that he had to have a bowel movement, he noted there was quite a bit of red blood in a minor amount of black stool associated with it. He was able to sleep through the night and again this morning had quite a bit of bright red blood, not describing clots, with a bit more diarrheal stool. He complains of low abdominal discomfort. No shortness of breath, his chronic cough seems at his baseline, no change to lower extremity edema, no palpitations, headache or exertional dyspnea. Related Data Home Medications Medication Instructions Recorded Confirmed fluticasone propionate 110 1 spray INH BID ##0 09/09/16 12/09/22 mcg/actuation HFA aerosol inhaler (Flovent HFA) metoprolol succinate 50 mg 50 mg PO BID ##0 09/09/16 12/09/22 tablet,extended release 24 hr (Toprol XL) apixaban 2.5 mg tablet 2.5 mg PO BID 05/03/18 12/09/22 apixaban 5 mg tablet (Eliquis) 2.5 mg PO BID 05/03/18 12/09/22 hydrocodone 5 mg-acetaminophen 325 5 - 325 mg PO PRN PRN Pain (Scale 05/03/18 12/09/22 mg tablet Score 1-3) ibuprofen 600 mg tablet 600 mg PO PRN PRN Pain (Scale 05/03/18 12/09/22 Score 1-3) metoprolol succinate 50 mg 50 mg PO BID 05/03/18 12/09/22 tablet,extended release 24 hr simvastatin 20 mg tablet 40 mg PO DAILY 05/03/18 12/09/22 Spiriva with HandiHaler 18 mcg PO DAILY 12/09/22 12/09/22 albuterol 1 puff PO Q3-6H PRN difficulty 12/09/22 12/09/22 breathing digoxin 125 mcg PO DAILY 12/09/22 12/09/22 gabapentin 100 mg PO TID 12/09/22 12/09/22 Previous Rx's Medication Instructions Recorded furosemide 40 mg tablet 40 mg PO Q DAY ##30 09/09/16 Allergies Allergy/AdvReac Type Severity Reaction Status Date / Time Sulfa (Sulfonamide Allergy Severe THROAT Verified 10/13/23 17:16 Antibiotics) SWELLING azithromycin Allergy Rash Verified 10/13/23 17:16 diltiazem [From Cardizem] Allergy Rash Verified 10/13/23 17:16 Review of Systems Review of Systems Narrative: Pertinent positive and negative findings as per HPI Patient History Medical History CAD (coronary artery disease) CLARISSA on CPAP Chronic kidney disease (CKD) Chronic kidney disease (CKD) COPD (chronic obstructive pulmonary disease) Pacemaker Cataract Fusion of spine, lumbar region Atrial fibrillation Surgical History H/O total hip arthroplasty H/O knee surgery H/O prostatectomy Hx of tonsillectomy Social History household members: family Smoking Status: Former smoker alcohol intake: current Smoking Status: Former smoker alcohol intake frequency: 0-2 drinks per day Exam Initial Vital Signs Initial Vital Signs: Vital Signs Blood Pressure 133/67 06/05/24 09:25 General: Healthy appearing, in no acute distress. Able to give a complete and coherent history. Well-nourished well-developed HEENT: Moist mucous membranes, normal sclera with reactive pupils, Neck: No JVD, supple Respiratory: Lungs are clear to auscultation, no wheezing no rales no rhonchi. Full and symmetrical air movement Cardiac: Regular rate and rhythm no murmurs no bruits Abdomen: Soft, nontender to palpation, hyperactive bowel tones no flank pain Skin: Warm and dry, no rashes, patient does not appear particularly pale Neurologic: Grossly neurologically intact with no obvious asymmetries or abnormalities Extremities: No trauma, no lower extremity edema Psych: Cooperative, appropriate insight and affect Course Orders Ordered: ED Orders 06/05/24 09:29 XR chest 1V Stat 06/05/24 09:30 Complete Blood Count AUTO DIFF Stat Comprehensive Metabolic Panel Stat Lactate (Lactic Acid) Stat Lipase Stat NT-proBNP (BNP-Adult 18+) Stat PT [Prothrombin Time INR] Stat PTT Partial Thromboplastin [place] Stat Troponin I Stat Type and Screen Stat 06/05/24 09:33 EKG-12 Lead Stat 06/05/24 09:51 Urinalysis and Microscopic Stat 06/05/24 10:01 CT abdomen pelvis w con Stat 06/05/24 11:57 EKG-12 Lead Stat 06/05/24 12:33 Hemoglobin and Hematocrit Stat Trop I [Troponin I] Stat Type and Screen Stat Vital Signs Vital signs: Vital Signs - 8 hr 06/05/24 09:25 06/05/24 09:26 06/05/24 09:30 Temperature Pulse Rate 74 71 Respiratory Rate Blood Pressure 133/67 Pulse Oximetry 99 99 Oxygen Delivery Method 06/05/24 09:30 06/05/24 09:31 06/05/24 10:00 Temperature 98.1 F Pulse Rate 70 75 Respiratory Rate 18 36 H Blood Pressure 147/63 H 133/67 Pulse Oximetry 99 Oxygen Delivery Method Room Air 06/05/24 10:33 06/05/24 10:33 06/05/24 11:00 Temperature Pulse Rate 69 72 Respiratory Rate 14 13 Blood Pressure 125/65 Pulse Oximetry 97 96 Oxygen Delivery Method 06/05/24 11:00 06/05/24 11:30 06/05/24 11:30 Temperature Pulse Rate 72 Respiratory Rate 11 L Blood Pressure 122/67 120/66 Pulse Oximetry 95 Oxygen Delivery Method 06/05/24 11:55 06/05/24 11:55 06/05/24 12:00 Temperature Pulse Rate 73 77 Respiratory Rate 28 H 31 H Blood Pressure 142/65 H Pulse Oximetry 98 98 Oxygen Delivery Method 06/05/24 12:00 06/05/24 12:30 06/05/24 12:30 Temperature Pulse Rate 74 Respiratory Rate 21 Blood Pressure 149/87 H 130/72 Pulse Oximetry 96 Oxygen Delivery Method 06/05/24 13:00 06/05/24 13:00 06/05/24 13:30 Temperature Pulse Rate 75 71 Respiratory Rate 24 15 Blood Pressure 131/94 H Pulse Oximetry 97 97 Oxygen Delivery Method Medical Decision Making Lab Data 06/05/24 12:33 06/05/24 09:30 Labs: Lab Results 06/05/24 06/05/24 06/05/24 Range/Units 09:30 09:51 12:33 WBC 9.0 (4.5-11.0) X10^3/uL RBC 3.78 L (4.5-5.9) X10^6/uL Hgb 11.5 L 11.9 L (13.5-17.5) g/dL Hct 35.3 L 36.8 L (41-53) % MCV 93.3 (80-100) fL MCH 30.4 (26-34) PG MCHC 32.6 (30-36) % RDW 16.7 H (11.6-14.8) % Plt Count 228 (150-400) X10^3/uL Neut % (Auto) 72.7 (50-75) % Lymph % (Auto) 14.3 L (25-40) % [place] % (Auto) 6.4 (3-14) % Eos % (Auto) 5.7 H (2-4) % Baso % (Auto) 0.9 (0-2) % Neut # (Auto) 6600 (2816-2148) /uL Lymph # (Auto) 1300 (2909-1263) /uL [place] # (Auto) 600 (0-900) /uL Eos # (Auto) 500 H (0-450) /uL Baso # (Auto) 100 (0-100) /uL PT 13.5 H (9.4-12.5) SECONDS INR 1.2 (0.9-1.3) APTT 41 H (25.1-36.5) SECONDS Sodium 137 (137-145) mmol/L Potassium 3.8 (3.4-5.1) mmol/L Chloride 104 (98-107) mmol/L Carbon Dioxide 28 (22-32) mmol/L BUN 39 H (9-20) mg/dL Creatinine 1.41 H (0.66-1.25) mg/dL Estimated GFR 48 L (>60) mL/min BUN/Creatinine Ratio 27.7 H (6-22) Glucose 121 H (80-110) mg/dL Lactate 1.3 (0.7-2.1) mmol/L Calcium 9.2 (8.4-10.2) mg/dL Total Bilirubin 0.7 (0.2-1.3) mg/dL AST 29 (17-59) IU/L ALT 24 (<50) IU/L Alkaline Phosphatase 83 (38-126) U/L Troponin I < 0.012 < 0.012 (0.01-0.034) ng/mL NT-Pro-B Natriuret Pep 1190 H (<450) pg/mL Total Protein 6.5 (6.3-8.2) g/dL Albumin 3.7 (3.5-5.0) g/dL Globulin 2.8 (1.7-4.1) g/dL Albumin/Globulin Ratio 1.3 (1.0-2.8) Lipase 46 (23-300) U/L Urine Color Yellow Urine Appearance Clear Urine pH 6.5 (4.5-8.0) Ur Specific [place] 1.010 (1.000-1.035) Urine Protein Negative (Negative) Urine Glucose (UA) Negative (Negative) g/dL Urine Ketones Negative (NEGATIVE) Urine Occult Blood Negative (Negative) Urine Nitrate Negative (Negative) Urine Bilirubin Negative (NEGATIVE) Urine Urobilinogen 0.2 (0.2) E.U./dL Ur Leukocyte Esterase Negative (NEGATIVE) Urine RBC 0-1/hpf (0-5/HPF) Urine WBC None seen (0-5/HPF) Ur Squamous Epith Cells None seen (0-5/HPF) Urine Bacteria None seen (None) Ur Culture Indicated? Cult not indicated Vol Urine Centrifuged 10ml (spun) Blood Type O Positive O Positive Antibody Screen Negative Negative Imaging Data CT scan - abdomen/pelvis: Radiologist's Impression: PROCEDURE: CT ABDOMEN PELVIS W CON INDICATIONS: acute lower abd pain with BRBPR TECHNIQUE: After the administration of intravenous contrast, axial sections acquired from the lung bases to the pubic symphysis. Coronal and sagittal reformats were performed. For radiation dose reduction, the following was used: automated exposure control, adjustment of mA and/or kV according to patient size. COMPARISON: None. FINDINGS: Lower thorax: Peripheral chronic interstitial changes. Nonspecific ground-glass opacity in the lower lobe measures 1 cm Liver: Normal in size and attenuation. No contour deformity present. Small left hepatic simple cyst Biliary system: No calcified cholelithiasis or pericholecystic inflammation. No intra or extrahepatic bile duct dilatation. Pancreas: Unremarkable without mass or inflammation evident. Spleen: Normal in size and density. Adrenals: Normal morphology and density. Reproductive system: Prostatectomy. Urinary system: Normal renal size and attenuation. No renal calculi, hydronephrosis, or solid mass present. Urinary bladder unremarkable. Gastrointestinal system: The bowel is unremarkable without evidence of bowel obstruction or inflammation. The stomach appears unremarkable. Multiple diverticula arise from the entire colon without evidence of diverticulitis. Incidental duodenal diverticulum. Appendix: No findings to suggest acute appendicitis. Peritoneal spaces: No mesenteric or retroperitoneal adenopathy. No free air. No free fluid. Vasculature: Aortic atherosclerotic vascular calcification noted without evidence of aneurysm. Abdominal wall: Small ventral periumbilical hernia contains fat without bowel involvement. Musculoskeletal: Lower lumbar spine instrumented discectomy, fusion and decompression. Bilateral hip prosthesis limits assessment of the pelvis IMPRESSION: Advanced colonic diverticulosis without evidence of acute diverticulitis. No acute CT findings in the abdomen and pelvis. Multiple additional chronic findings as above. Approved by: Easton Box M.D. on 06/05/2024 at 11:00 MDM Narrative Medical decision making narrative: CC: 2 episodes of bright red blood per rectum, lower abdominal discomfort Complicating co-morbidities: Prior history of diverticular bleeding, AFib, anticoagulated, coronary artery disease, congestive heart failure Data collected from: patient Social determinants of health that may influence the patients condition: Patient continues to live independently Medical records reviewed: Previous notes reviewed. He had an upper endoscopy that was done in November of 2022. He states he had a lower endoscopy but I do not see evidence of that in our current medical record. No ER or hospital notes regarding prior diverticular episode Differential considered: Diverticular bleed, given his age and lower abdominal pain possibility of a neoplastic process is at least considered, acute diverticulitis, bowel obstruction Exam documented above, pertinent findings include: Remarkably healthy appearing 89-year-old gentleman in no acute distress, certainly does not have an acute abdomen, heart and lungs are unremarkable Lab Test results independently reviewed as above. Pertinent findings: CBC shows hemoglobin of 11.5 and hematocrit of 35.3. On April 27 of this year they were at 12.9 and 38.9 respectively. Platelets are appropriate, no leukocytosis Chemistries show renal insufficiency with creatinine at 1.4 and GFR at 48 liver studies are unremarkable Lactate is within normal limits Urine is unremarkable Troponin is undetectable BNP is slightly elevated at 1190 which is lower than previous readings Independently reviewed EKG: Paced at 78 beats per minute with underlying AFib EKG repeated after episode of chest pain is entirely unchanged Imaging studies independently reviewed: Given the new onset lower abdominal discomfort we are going to proceed with a CT scan Chest x-ray shows bibasilar atelectasis consistent with his chronic COPD/emphysema CT scan shows diverticulosis no acute diverticulitis or other explanation for the lower abdominal cramping Treatments: Arrival patient is alert appropriate, hemodynamically stable, we will hold on any fluid resuscitation in light of his known congestive heart failure Re-evaluations: 1200 patient complained of slight substernal heaviness after standing up from a commode and transferring to bedside Discussion: 89-year-old gentleman who has had 2 episodes of bright red blood nonpainful per rectum small amount of stool mixed in but not associated with constipated or firm stool currently on Eliquis. He has had some tenesmus urges in the ER but has not had any additional blood per rectum. Hemoglobin on April 27 was 12.9 1st checked today was 11.5, he was given 500 cc of fluid and hemoglobin is up to 11.9. Clearly not continuing to actively bleed. He did note that he happened episode of chest pain but he says that is not uncommon when he goes in and out of atrial fibrillation and he is currently in a slow atrial fibrillation with his pacemaker working appropriately. There was no evidence of acute coronary syndrome. With shared decision-making we discussed hospitalization given his age and the 2 episodes of bleeding with the chest pain that was appreciated. He notes that the chest pain is actually fairly common and feels like it is close to his baseline he has not particularly concerned and he states that he would prefer discharge home and recognizes that he can come back if needed. He has had 1 prior episode of diverticular bleeding that resolved spontaneously without additional intervention and he is basing his decision on that presentation, I believe his decision-making a sound. At this time there was no indication for additional imaging or hospitalization and he is discharged home Discharge Plan Departure Patient Disposition: Home Clinical Impression: Diverticular hemorrhage, Anticoagulation adequate Atrial fibrillation Qualifiers: Atrial fibrillation type: paroxysmal Qualified Code(s): I48.0 - Paroxysmal atrial fibrillation Instructions: Gastrointestinal Bleeding Activity Restrictions/Additional Instructions: Thank you for coming in today I do believe that you had a small amount of bleeding likely from broken blood vessel around a diverticula. I am not seeing signs of infection or significant abnormalities. The CT scan of your abdomen did not show any specific concerning findings It did look like you had lost a small amount of blood however with the repeat blood test that number was increasing. Often diverticular bleeding will stop by itself. I do believe it is safe for you to go home however if you have more bleeding, increasing pain new findings including worsening chest pain or shortness a breath you need to return to the emergency department Prescriptions: No Action metoprolol succinate [Toprol XL] 50 MG tablet extended release 24 hr 50 mg PO BID Qty: 0 fluticasone propionate [Flovent HFA] 12 GM HFA aerosol inhaler 1 spray INH BID Qty: 0 furosemide 40 MG tablet 40 mg PO Q DAY Qty: 30 0RF albuterol 1 puff PO Q3-6H PRN (Reason: difficulty breathing) Spiriva with HandiHaler 18 mcg inhaler 18 mcg PO DAILY digoxin 125 mcg tablet 125 mcg PO DAILY gabapentin 100 mg capsule 100 mg PO TID Eliquis 2.5 mg tablet 2.5 mg PO BID ibuprofen 600 mg tablet 600 mg PO PRN PRN (Reason: Pain (Scale Score 1-3)) Patient Comments: take 1 tablet by mouth every 6 hours hydrocodone-acetaminophen 5-325 mg tablet 5 - 325 mg PO PRN PRN (Reason: Pain (Scale Score 1-3)) simvastatin 20 mg tablet 40 mg PO DAILY Eliquis 5 MG tablet 2.5 mg PO BID metoprolol succinate 50 MG tablet extended release 24 hr 50 mg PO BID Referrals: Sendy Clements PA-C [Primary Care Provider] - Stand Alone Forms: Patient Portal/API/Survey
--- NOTE | 2024-06-05 09:29 | DI.RAD.S_ITS ---
PROCEDURE: XR CHEST 1V INDICATIONS: cough TECHNIQUE: One view of the chest was acquired. COMPARISON: [facility], CR, XR CHEST 2V, 12/04/2022, 10:41. FINDINGS: Surgical changes and devices: Left-sided dual-chamber pacemaker. Lungs and pleura: Bibasilar scattered atelectasis and or infiltrate. Remainder of the lungs and pleural spaces are clear. Mediastinum: Mediastinal contours appear normal. Heart size is normal. Bones and chest wall: No suspicious bony lesions. Overlying soft tissues appear unremarkable. IMPRESSION: Bibasilar atelectasis and or infiltrate Dictated by: Easton Box M.D. on 06/05/2024 at 9:04 Approved by: Easton Box M.D. on 06/05/2024 at 9:08
--- NOTE | 2024-06-05 09:33 | EKG_ITS ---
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
[2024-06-05 09:37] LABS: Add Manual Diff / Slide Review NO; Basophils Absolute Auto 100 /uL (0-100); Basophils Percent Auto 0.9 % (0-2); Eosinophils Absolute Auto 500 /uL (0-450); Eosinophils Percent Auto 5.7 % (2-4); Hematocrit 35.3 % (41-53); Hemoglobin 11.5 g/dL (13.5-17.5); Lymphocytes Absolute Auto 1300 /uL (1100-4500); Lymphocytes Percent Auto 14.3 % (25-40); Mean Corpuscular HGB Conc 32.6 % (30-36); Mean Corpuscular Hemoglobin 30.4 PG (26-34); Mean Corpuscular Volume 93.3 fL (80-100); Monocytes Absolute Auto 600 /uL (0-900); Monocytes Percent Auto 6.4 % (3-14); Neutrophils Absolute Auto 6600 /uL (1500-7000); Neutrophils Percent Auto 72.7 % (50-75); Platelet Count 228 X10^3/uL (150-400); Red Blood Cell Count 3.78 X10^6/uL (4.5-5.9); Red Cell Distribution Width 16.7 % (11.6-14.8)
[2024-06-05 09:45] LABS: INR 1.2 (0.9-1.3); Prothrombin Time 13.5 SECONDS (9.4-12.5)
[2024-06-05 09:48] LABS: PTT Partial Thromboplastin Tim 41 SECONDS (25.1-36.5)
[2024-06-05 09:53] LABS: Alanine Aminotransferase 24 IU/L (<50); Albumin 3.7 g/dL (3.5-5.0); Albumin Globulin Ratio 1.3 (1.0-2.8); Alkaline Phosphatase 83 U/L (38-126); Aspartate Aminotransferase 29 IU/L (17-59); BUN Creatinine Ratio 27.7 (6-22); Bilirubin Total 0.7 mg/dL (0.2-1.3); Blood Urea Nitrogen 39 mg/dL (9-20); Calcium 9.2 mg/dL (8.4-10.2); Carbon Dioxide 28 mmol/L (22-32); Chloride 104 mmol/L (98-107); Estimated Glomerular Filt Rate 48 mL/min (>60); Globulin 2.8 g/dL (1.7-4.1); Glucose 121 mg/dL (80-110); HEMOLYSIS < 15 (0-50); Lactate (Lactic Acid) 1.3 mmol/L (0.7-2.1); Lipase 46 U/L (23-300); Potassium 3.8 mmol/L (3.4-5.1); Sodium 137 mmol/L (137-145); Total Protein 6.5 g/dL (6.3-8.2)
--- NOTE | 2024-06-05 10:01 | DI.CT.S_ITS ---
PROCEDURE: CT ABDOMEN PELVIS W CON INDICATIONS: acute lower abd pain with BRBPR TECHNIQUE: After the administration of intravenous contrast, axial sections acquired from the lung bases to the pubic symphysis. Coronal and sagittal reformats were performed. For radiation dose reduction, the following was used: automated exposure control, adjustment of mA and/or kV according to patient size. COMPARISON: None. FINDINGS: Lower thorax: Peripheral chronic interstitial changes. Nonspecific ground-glass opacity in the lower lobe measures 1 cm Liver: Normal in size and attenuation. No contour deformity present. Small left hepatic simple cyst Biliary system: No calcified cholelithiasis or pericholecystic inflammation. No intra or extrahepatic bile duct dilatation. Pancreas: Unremarkable without mass or inflammation evident. Spleen: Normal in size and density. Adrenals: Normal morphology and density. Reproductive system: Prostatectomy. Urinary system: Normal renal size and attenuation. No renal calculi, hydronephrosis, or solid mass present. Urinary bladder unremarkable. Gastrointestinal system: The bowel is unremarkable without evidence of bowel obstruction or inflammation. The stomach appears unremarkable. Multiple diverticula arise from the entire colon without evidence of diverticulitis. Incidental duodenal diverticulum. Appendix: No findings to suggest acute appendicitis. Peritoneal spaces: No mesenteric or retroperitoneal adenopathy. No free air. No free fluid. Vasculature: Aortic atherosclerotic vascular calcification noted without evidence of aneurysm. Abdominal wall: Small ventral periumbilical hernia contains fat without bowel involvement. Musculoskeletal: Lower lumbar spine instrumented discectomy, fusion and decompression. Bilateral hip prosthesis limits assessment of the pelvis IMPRESSION: Advanced colonic diverticulosis without evidence of acute diverticulitis. No acute CT findings in the abdomen and pelvis. Multiple additional chronic findings as above. Approved by: Easton Box M.D. on 06/05/2024 at 11:00
[2024-06-05 10:04] LABS: Appearance Urine UA CLEAR; Bilirubin Urine UA NEGATIVE (NEGATIVE); Color Urine UA YELLOW; Glucose Urine UA NEGATIVE (Negative); Ketones Urine UA NEGATIVE (NEGATIVE); Leukocyte Esterase Urine UA NEGATIVE (NEGATIVE); Nitrite Urine UA NEGATIVE (Negative); Occult Blood Urine UA NEGATIVE (Negative); Protein Urine UA NEGATIVE (Negative); Urobilinogen Urine UA 0.2 E.U./dL (0.2); pH Urine UA 6.5 (4.5-8.0)
[2024-06-05 10:04] LABS: NT-proBNP (BNP-Adult 18+) 1190 pg/mL (<450); Troponin I < 0.012 ng/mL (0.01-0.034)
[2024-06-05 10:21] LABS: RBC Urine 0-1/HPF (0-5/HPF); Urine Volume 10mL (spun); WBC Urine None Seen (0-5/HPF)
[2024-06-05 10:22] LABS: Bacteria Urine None Seen; Culture Indicated Urine Cult Not Indicated; Squamous Epithelial Cell Urine None Seen (0-5/HPF)
--- NOTE | 2024-06-05 11:57 | EKG_ITS ---
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
[2024-06-05 12:44] LABS: Hematocrit 36.8 % (41-53); Hemoglobin 11.9 g/dL (13.5-17.5)
[2024-06-05 13:06] LABS: Troponin I < 0.012 ng/mL (0.01-0.034)
== END 2024-06-05 13:42 | disposition home or self-care (01) ==
PROVIDERS: Emergency Provider Emergency Medicine; PCP Physician Assistant Medical
DX: I48.0 Paroxysmal atrial fibrillation (principal); Z79.01 Long term (current) use of anticoagulants; R10.30 Lower abdominal pain, unspecified; K57.31 Diverticulosis of large intestine without perforation or abscess with bleeding; R05.9 Cough, unspecified
CPT/HCPCS: 36415; 71045; 74177; 80053; 81001; 83605; 83690; 83880; 84484; 85014; 85018; 85025; 85610; 85730; 86850; 86900; 86901; 93005; 93010; 99283; Q9967

== ENCOUNTER 2024-06-15 08:30 | Day surgery (SDC) | payer MEDICARE, OTHER, SELFPAY ==
[2024-06-09 15:10] VITALS: BMI 32.2
[2024-06-15] VITALS (7 sets, daily range): BP systolic 98–119; BP diastolic 57–75; PULSE 70–80; RESP 12–16; TEMP 36.4–37.2; O2SAT 93–97; BMI 30.9
--- NOTE | 2024-06-15 06:00 | DI.RAD.S_ITS ---
PROCEDURE: XR KNEE RT 1TO2V INDICATIONS: uka TECHNIQUE: 2 view(s) of the knee acquired. COMPARISON: [facility], CR, XR KNEE 4+ VIEWS RIGHT, 02/18/2024, 14:41. FINDINGS: Bones: Patient is status post knee joint medial graham arthroplasty. Hardware components are in expected positions. Visualized bony structures are intact. Soft tissues: Overlying postoperative changes are noted. IMPRESSION: Expected post-operative appearance of a knee arthroplasty. Dictated by: Coby Ruff M.D. on 06/15/2024 at 13:29 Approved by: Coby Ruff M.D. on 06/15/2024 at 13:29
[2024-06-15] MEDS: VANCOMYCIN 1,000 MG in SODIUM CHLORIDE 0.9% 250 ML 250 MG IV (09:33)
[2024-06-15] MEDS: LACTATED RINGERS 1,000 ML 42 ML IV (09:38)
[2024-06-15] MEDS: ACETAMINOPHEN 325 MG TABLET 975 MG PO ×2 (09:38→10:41)
--- NOTE | 2024-06-15 10:25 | PM.PREOP ---
Pre-operative Note Interval Note History & Physical reviewed/Exam performed by Physician: Yes Changes to H&P: No
--- NOTE | 2024-06-15 10:25 | PM.OP.1 ---
Operative Date/Time/Diagnoses Date of procedure: 06/15/24 Time of procedure: 11:00 Pre-op diagnosis: Right knee medial osteoarthritis severe Post-op diagnosis: same Procedure & Clinicians Procedure: Right knee medial unicompartment arthroplasty Same procedure as scheduled: Yes Indications: This is a 89-year-old who lives independently who notes that he is having ongoing problems with right knee medial compartment pain. His specific complaint is that he gets quad inhibition and a sense that his knee is going to buckle when he steps down and slightly hyperextends his knee. It has failed extensive conservative treatment. His x-rays show severe medial compartment arthritis. He is brought to the operating room for right knee medial compartment arthroplasty. The procedure options risks benefits and complications were discussed discussed in detail. He does have medical problems including cardiac pulmonary and some mild sleep apnea which is stable with the CPAP. Risks benefits and complications were discussed in detail. Surgeon: Sue Soriano Hand I Tube Bender: Jelani Fleming Anesthesia Type: General Operative Notes Findings: Severe right knee medial compartment arthritis, adequate stability, adequate bone Closure Type: primary Specimen(s): none sent Prosthetic devices, grafts, tissues, transplants, or devices: Soriano and nephew medial unicompartment journey size femur 8, tibia 8, poly 8 Estimated Blood Loss (mL): 100 Blood products transfused: none Tourniquet time (min): 79 Procedure in detail: The patient was seen in the pre-operative area, where the right knee was identified as the operative site and this was marked with my initials. The patient received pre-operative antibiotics, and was taken to the operating room and placed on the operative table in the supine position. After satisfactory anesthesia, a part time flexible clerk out was performed. The right leg was encircled with a tourniquet about the proximal thigh, and the leg was prepared from the toes to the tourniquet with ChloroPrep in the usual fashion and draped through sterile drapes. The leg was elevated and exsanguinated with Eschmark bandage and the tourniquet inflated to [250] mmHg pressure. A PA was used during the procedure and was essential for intraoperative retraction and safe implantation of the components. The knee was approached through an approximately 10 cm incision medial parapatella incision and carried into the knee through a medial parapatellar arthrotomy. The osteophytes and medial meniscus were removed. Pins were placed for Cori assisted robotic navigation. The knee was meticulously mapped. A plan was carefully taken and developed. It looked like appropriate positioning of the medial and femoral and tibial component. There was good range of motion and acceptable stability Cori robotic bur was used to resect the distal femur and tibia. Tibia was sized and any residual posterior horn medial meniscus was resected. Marcaine and Exparel 266 mg in total were injected throughout the knee for postoperative pain management. Hemostasis was achieved posteriorly with a Bovie cautery. A trial reduction with a tibial and femoral component showed excellent range of motion and good stability. There was good tracking of the component and full range of motion and symmetrical stability. Trial reduction with the appropriate poly showed full range of motion and good stability at 0, 45. and 90? with normal tracking of the components without edge loading. The bone was meticulously irrigated and dried. Additional Marcaine was injected. The posterior capsule was injected with 0.25% Marcaine mixed with 266 ml Exparel for post-operative pain control. The remainder of this mixture was injected into the capsule and subcutaneous tissues during cement curing. Range of motion was [0-130], with good stability throughout the range. The trials were then remove. The cement was as applied and the final prosthetics placed. Excess cement was removed during and after cement curing. A brief medial compartment Betadine soak was performed. After confirming there was no extruded cement posteriorly, the final tibial insert was placed. The knee was copiously irrigated and the tourniquet deflated. Hemostasis was obtained. The capsule was closed with interrupted vicryl. The subcutaneous tissue was closed with barbed sutures. The skin with a running 3-0 V-Lock suture and surgical glue. An Aquacel Ag dressing was applied and the patient was taken to recovery having tolerated the procedure well. Complications: none Post-operative Condition: stable Disposition: Acute Care Plan for aftercare: The patient will be maintained on a standard partial knee replacement protocol with weight bearing as tolerated. The patient will receive Eliquis and sequential compression devices for DVT prophylaxis. The patient will be discharged home when safe for the home environment.
--- NOTE | 2024-06-15 10:44 | SUR.PREOP ---
Block start time 1034 with a time out. Monitoring initiated and maintained throughout procedure. Patient remained stable throughout procedure, no adverse reactions noted. Block end time 1040.
[2024-06-15] MEDS: TRANEXAMIC ACID 1,000 MG VIAL 2000 MG INJ ×2 (11:03→11:04)
[2024-06-15] MEDS: CEFAZOLIN 2 GM/100 ML PREMIX 100 ML IV (11:03)
--- NOTE | 2024-06-15 11:33 | SUR.OPER ---
Supine on padded OR bed. Pillow under head, arms secured on padded armboards <90 degree abduction. Safety belt across torso. Non-operative leg secured with tape over blanket over lower leg. Operative leg secured in Russell positioner. Foam padded brace at thigh of operative leg.
[2024-06-15] MEDS: BUPIVACAINE LIPOSOME 266 MG/20 ML VIAL INJ (11:41)
[2024-06-15] MEDS: BUPIVACAINE 0.25% (PF) 60 ML, EPINEPHrine 0.3 MG INJ (11:43)
--- NOTE | 2024-06-15 14:45 | PT.IIE ---
Current Diagnoses Unilateral primary osteoarthritis, right knee (06/15/24) Surgery Performed Operation Date: 06/15/24 10:45 Actual Procedures p Medial Unicompartment Knee Arthroplasty - Robot(Right) - Sue Soriano MD Surgical History (Last Updated 06/10/24 @ 08:54 by Jenn Hagen, RN) H/O angioplasty (02/11/02) H/O cardiac radiofrequency ablation (11/25/12) H/O cardiac radiofrequency ablation (03/15/13) H/O knee surgery H/O prostatectomy (2008) H/O total hip arthroplasty H/O vasectomy History of cataract extraction with lens replacement History of lumbar fusion History of lumbar fusion Hx of tonsillectomy Medical History (Last Updated 06/10/24 @ 08:30 by Jenn Hagen, RN) Asthma Atrial fibrillation CAD (coronary artery disease) Cataract Chronic cough Chronic kidney disease (CKD) COPD (chronic obstructive pulmonary disease) Diabetes GERD (gastroesophageal reflux disease) History of cardioversion (03/12/16) HLD (hyperlipidemia) Hypothyroid Mitral valve regurgitation CLARISSA on CPAP 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) Spinal stenosis Physical Therapy Inpatient Evaluation/Re-Eval M1 PT/OT-IP Prior Functional Status Start: 06/15/24 16:44 Freq: NEEDED Status: Active Protocol: Document 06/15/24 14:45 AB (Rec: 06/15/24 16:58 AB [id number]) Medical Review Prior Functional Status Medical History Reviewed Yes Communication able to make needs known Mobility and Gait pt stated that he was modified independent with all mobilities and ambulation using a quad cane indoors; uses a 4WW for outdoor mobility but for short distances, uses a quad cane Social History Household Members none Living Arrangements House Number of Floors (Floors) One Floor Number of Stairs To Enter/Railing? ramp to enter Home Environment Standard Height Toilet,Walk in Shower,Ramp Home Equipment Front Wheel Walker,Four Wheel Walker,Quad Cane,Shower Seat without Backrest,Hand Held Shower Additional Social History Comment pt has his family (son and DIL ) living in the same property and can assist him and can stay with him to assist if needed M2 PT-IP Current Condition Start: 06/15/24 16:44 Freq: NEEDED Status: Active Protocol: Document 06/15/24 14:45 AB (Rec: 06/15/24 16:58 [id number]) Physical Therapy Current Condition Current Condition Evaluation Date 06/15/24 Treatment Diagnosis s/p R uni knee; difficulty in walking Onset Date 06/15/24 M3 PT-IP Subjective Start: 06/15/24 16:44 Freq: NEEDED Status: Active Protocol: Document 06/15/24 14:45 AB (Rec: 06/15/24 16:58 AB [id number]) Subjective Physical Therapy Visit Type Type Initial Evaluation Visit Start Time 14:45 Visit Stop Time 15:30 Number of DESIGN VERIFICATION ENGINEER Visits 0 Physical Therapy Visit Comments Patient Comments agreeable to do PT Therapy Pain Assessment Pain Present Pain Present Denied Pain M4 PT-IP Mobility and Gait Start: 06/15/24 16:44 Freq: NEEDED Status: Active Protocol: Document 06/15/24 14:45 AB (Rec: 06/15/24 16:58 AB [id number]) PT-Bed Mobility Assessment Supine to Sit Supine to Sit Maximum Assistance,1 Person Assistance Sit to Supine Sit to Supine Maximum Assistance,1 Person Assistance,Head of Bed Elevated PT-Transfer Assessment Sit to and From Stand Sit to and from Stand Minimal Assistance Equipment Transfer Assistive Device Gait Belt,Front Wheeled Walker Orthotic/Prosthetic Devices or Brace: No Comments Mobility Comments pt in bed and DIL in room with pt. obtained PLOF and home set up. post-op folder provided to pt and reviewed contents. reviewed HEP. pt completed supine to sit max A and cues. pt stated that he has a wall that he pulls to get up. pt stated that he has back issues and does a log roll but pt did not demonstrate a log roll. informed pt on how to do a log roll. completed max A and max cues. informed DIL on how to assist pt with bed mobility and understood. pt completed sit to stand min A and ambulated in room using FWW min A and cues ~ 30 ft. pt sat back on EOB. caregiver training conducted. educated DIL on how to use safety belt and how to assist pt. DIL was able to put safety belt on and assisted pt with sit to stand and ambulation in room using FWW. pt sat on transport chair. Pt and DIL without further concerns. Left pt with nurse. Gait Assessment Gait Gait Assistance Required: Minimum Assistance Distance (Feet) 30 Able to Maintain Weight Bearing Status Yes During Gait Assistive Devices Assistive Device Gait Belt,Front Wheeled Walker Orthotic/Prosthetic Devices or Brace: No Gait Deviations General Gait Pattern Decreased Stride Length, Decreased Feet Clearance Factors Limiting Gait Function Factors Limiting Gait Function Decreased Activity Tolerance, Decreased Sensation,Decreased Strength,Difficulty Following Directions,Limited Range of Motion,Poor Balance,Poor Safety Awareness PT-Balance Assessment Sitting Balance and Reactions Static Sitting Balance Ability Normal Dynamic Sitting Balance Ability Good Standing Balance and Reactions Static Standing Balance Ability Fair Dynamic Standing Balance Ability Fair Device Used FWW M5 PT-IP Objective Assessments Start: 06/15/24 16:44 Freq: NEEDED Status: Active Protocol: Document 06/15/24 14:45 AB (Rec: 06/15/24 16:58 AB [id number]) Orientation Orientation/Cognition Level of Alertness Alert Orientation Name,Place,Situation Language Function Ability Hard of Hearing Safety Awareness Decreased Safety Awareness Memory Description No Deficits Noted Gross Range of Motion Lower Extremity ROM Assessment Right Impaired Impairments R knee flexion: ~ 50 deg E knee extension: ~ 10 deg less to 0 Strength Lower Extremity Strength Assessment Right Impaired Hip 3+/5 Knee 4-/5 Coordination Assessment Gross Coordination Gross Coordination WNL Sensation Assessment Sensation Sensation Description Numbness Comments Sensation Comments chronic BLE numbness from knees down to toes due to neuropathy per pt Muscle Tone Muscle Tone WNL Yes M6 PT-IP Treatment Start: 06/15/24 16:44 Freq: NEEDED Status: Active Protocol: Document 06/15/24 14:45 AB (Rec: 06/15/24 16:58 AB [id number]) Physical Therapy Treatment Exercises Exercises Heel Slides Education Education Provided Precautions,Weight Bearing Status,Post-Op Packet,Safety M7 PT-IP Assessment and Plan Start: 06/15/24 16:44 Freq: NEEDED Status: Active Protocol: Document 06/15/24 14:45 AB (Rec: 06/15/24 16:58 AB [id number]) PT Summary Assessment and Plan Potential Rehabilitation Potential Fair Status of Condition at Evaluation Evolving Summary Impairments Pain,ROM,Strength,Balance, Coordination,Sensation,Tone, Cognition,Bed Mobility, Transfers,Gait,Activity Tolerance Assessment Summary pt is an 89 y/o M s/p R uni knee POD0 and seen in PACU for PT and plans to d/c today. pt is WBAT on RLE. pt requiring max A for bed mobility, min A for sit to stand and ambulation using FWW . caregiver training conducted. DIL was able to assist pt with transfers and ambulation and is aware on how to assist pt with bed mobility. pt stated that Dr. Soriano is working on him to have outpt PT. Goals Bed Mobility Goal Independent Transfer Goal Independent,Front Wheeled Walker Gait Goal Independent,Front Wheel Walker Gait Distance 200 Days to Meet Goals 5 Frequency of Treatment Frequency Of Treatment Twice a Day Treatment Plan Physical Therapy Treatment Plan Bed Mobility Training,Transfer Training,Gait Training, Therapeutic Exercise,Balance Retraining,Post Op Education, Discharge Planning,Hot or Cold Pack,Neuromuscular Re-ed, Coordination Retraining,Manual Therapy Weight Bearing Status Weight Bearing Status Weight Bear as Tolerated Allowed Weight Bearing Amount (enter % RLE WBAT or #) (%) Recommendations To Nursing Amount of Assist Needed 1 Person Assist Discharge Recommendations PT Discharge Recommendations Home with Assistance, Outpatient PT Transportation Needs at Discharge Private Vehicle
== END 2024-06-15 15:58 | disposition home or self-care (01) ==
PROVIDERS: PCP Physician Assistant Medical; Referring Provider Orthopaedic Surgery Orthopaedic Surgery of the Spine; Visit Provider Orthopaedic Surgery
PROC: (CPT 27446; principal; 2024-06-15 10:45)
DX: M17.11 Unilateral primary osteoarthritis, right knee (principal); G89.18 Other acute postprocedural pain; J44.9 Chronic obstructive pulmonary disease, unspecified; I48.91 Unspecified atrial fibrillation; M25.761 Osteophyte, right knee
CPT/HCPCS: 27446; 64450; 73560; 82962; 97162; 97530; C1776; C1713; C9290; J0171; J0690; J1100; J1171; J2405; J2704; J3010; J3490